=== PATIENT | male | born 1935 | race Caucasian/White ===

== ENCOUNTER → 2016-12-31 | Outpatient (CLI) | payer MEDICARE ==
[2016-05-04 22:13] VITALS: BP 131/75
[~2016-12-31] MED LIST: APIX5TAB3 PO; ASPI-630 PO; DILT240C2 PO; DILT240C77 PO; DIPH25CA58 PO; HYDR12.53 PO; IOHEXOL 300 MG/ML 75 ML VIAL. IV ONE; LOSA1TAB19 PO; METO25TA4 PO; Nicotine TD; OMEP20CA9 PO; POTA20TA4 PO; PRAV40TA2 PO; TRAZ-90 PO
--- NOTE | 2016-12-31 10:55 | RAD ---
CTA of the chest with and without contrast Clinical indications: Shortness of breath for 3 months with exertion. Increased d-dimer. Technique: Noncontrast axial localizer was performed. After IV infusion of 60 cc of Omnipaque 300, helical CT scanning of the chest was performed using the CT pulmonary embolism protocol. A coronal MIP reconstruction was generated. PQRS Compliance Statement: One or more of the following individualized dose reduction techniques were utilized for this examination: 1. Automated exposure control 2. Adjustment of the mA and/or kV according to patient size 3. Use of iterative reconstruction technique Comparison: None available. Findings: No pulmonary embolism is evident. No focal aneurysmal dilatation of the thoracic aorta is seen. Evaluation for intimal flap or dissection cannot be made since there is no contrast opacification of the thoracic aorta. Calcified atheromatous disease of the coronary arteries is seen. The heart size is mildly enlarged. No pericardial effusion is seen. No bulky thoracic lymphadenopathy is seen. Mediastinal lymph nodes are present and the largest lymph node measures 15 mm. Moderate size bilateral pleural effusions are seen. Bilateral groundglass lung infiltrates are seen consistent with pulmonary edema. No pneumothorax is seen. The proximal bronchial tree is patent. No adrenal masses are seen. Radiopaque gallstone is seen within the gallbladder. No osteolytic process is evident. IMPRESSION: No pulmonary embolism is evident. Cardiomegaly with calcified atheromatous disease of the coronary arteries. Moderate-sized bilateral pleural effusions and bilateral pulmonary edema. Mediastinal lymph nodes are seen which may be reactive in nature. Cholelithiasis.
== END | disposition home or self-care (01) ==
LOC: CT 09:07
PROVIDERS: ATTEND Nurse Practitioner Adult Health
DX: I51.7 Cardiomegaly (principal); J81.1 Chronic pulmonary edema; I25.10 Atherosclerotic heart disease of native coronary artery without angina pectoris; J90 Pleural effusion, not elsewhere classified; R91.8 Other nonspecific abnormal finding of lung field; K80.20 Calculus of gallbladder without cholecystitis without obstruction; R79.1 Abnormal coagulation profile; E78.00 Pure hypercholesterolemia, unspecified; I48.2 Chronic atrial fibrillation; I34.0 Nonrheumatic mitral (valve) insufficiency; I50.9 Heart failure, unspecified; K21.9 Gastro-esophageal reflux disease without esophagitis; J44.9 Chronic obstructive pulmonary disease, unspecified; F17.210 Nicotine dependence, cigarettes, uncomplicated
CPT/HCPCS: 71275; Q9967

== ENCOUNTER 2017-01-16 14:45 | Emergency (ER) | payer MEDICARE ==
[~2017-01-16] VITALS: Ht 180.3 cm; Wt 74.8 kg
[~2017-01-16 14:45] MED LIST changes: -IOHEXOL 300 MG/ML 75 ML VIAL. IV ONE
[2017-01-16] MEDS ORDERED: IPRATRPIUM/ALBUTEROL 0.5/2.5MG 3 ML NEBU. NEB ONE (15:15)
[2017-01-16 15:22] LABS: BASO # 0.1 x10^3/uL (0.0-0.2); BASO % 1 % (0-3); EOS # 0.1 x10^3/uL (0.0-0.7); EOS % 1 % (0-3); HEMATOCRIT 36.2 % (39.0-53.0); HEMOGLOBIN 12.3 g/dL (13.0-17.5); LYMPH # 0.7 x10^3/uL (1.0-4.8); LYMPH % 7 % (24-48); MEAN CORPUSCULAR HEMOGLOBIN 34 pg (25-35); MEAN CORPUSCULAR HGB CONC 34 g/dL (31-37); MEAN CORPUSCULAR VOLUME 99 fL (79-100); MONO # 1.1 x10^3/uL (0.0-1.1); MONO % 11 % (0-9); NEUT # 7.9 x10^3uL (1.8-7.7); NEUT % 81 % (31-73); PLATELET COUNT 191 x10^3/uL (140-400); RED BLOOD COUNT 3.67 x10^6/uL (4.30-5.70); RED CELL DISTRIBUTION WIDTH 16.5 % (11.5-14.5); WHITE BLOOD COUNT 9.7 x10^3/uL (4.0-11.0)
--- NOTE | 2017-01-16 15:29 | RAD ---
Single view of the Chest 01/16/2017 4:46 PM Indication: chest pain Comparison: Chest radiograph April 13, 2016 Findings: There is a mild right-sided medial basilar consolidation representing pneumonia or atelectasis. No pneumothorax is identified. Heart size is mildly enlarged but stable. No acute osseous abnormalities are identified. Impression: Mild right basilar consolidation which could represent atelectasis or pneumonia. Correlate with clinical findings and consider follow-up two-view chest radiograph to ensure resolution.
[2017-01-16 15:35] LABS: ALBUMIN 3.1 g/dL (3.4-5.0); CREATININE 1.8 mg/dL (0.7-1.3); DIRECT BILIRUBIN 0.4 mg/dL (0.0-0.2); GFR 36.6; POTASSIUM 3.5 mmol/L (3.5-5.1); TOTAL BILIRUBIN 1.2 mg/dL (0.2-1.0); TOTAL PROTEIN 7.2 g/dL (6.4-8.2)
--- NOTE | 2017-01-16 15:49 | EKG ---
[address] [address] Test Date: 2017-01-16 Test Time: 15:38:07 Pat Name: VIVEK ALEXANDER Department: Room: Gender: M Newspaper Copy Editor: ANKITA : 1935 Requested By: AFSHAN CUELLO Order Number: [id number] Reading MD: Measurements Intervals [place] Rate: 70 P: [place]: QRS: 74 QRSD: 90 T: 42 QT: 432 QTc: 470 Interpretive Statements ATRIAL FLUTTER R-S TRANSITION ZONE IN V LEADS DISPLACED TO THE LEFT QRS(T) CONTOUR ABNORMALITY CONSIDER ANTEROLATERAL MYOCARDIAL DAMAGE ABNORMAL ECG RI6.01 Unconfirmed report No previous ECG available for comparison
--- NOTE | 2017-01-16 15:56 | RAD ---
CT HEAD WITHOUT UMNYMXUX12/22/2017 5:11 PM Indication: pupil changes with increased unsteady gait on anticoags Comparison: CT head without contrast April 14, 2016 Procedure: Multidetector CT imaging of the head was performed without the administration of contrast. Findings: No evidence of acute intracranial hemorrhage is identified. No evidence of subacute territorial infarct is seen. Note that CT can be insensitive for acute ischemia. If there is continued clinical concern for acute ischemia MRI offers more sensitive evaluation. Senescent volume loss and periventricular deep white matter hypoattenuation is similar to prior studies. These changes the ventricles and basilar cisterns have an unremarkable and stable configuration. There is a new area of CSF density hypoattenuation in the periventricular deep white matter frontal lobe findings may reflect an interval lacunar, but chronic small infarct. No acute mass effect or midline shift is identified. No acute osseous changes are identified. Impression : 1. No evidence of acute intracranial abnormality 2. New small CSF density hypoattenuation in the right frontal lobe may reflect an interval, but chronic infarct. Correlate with clinical history 3. Stable senescent changes including changes of chronic small vessel disease PQRS Compliance Statement: One or more of the following individualized dose reduction techniques were utilized for this examination: 1. Automated exposure control 2. Adjustment of the mA and/or kV according to patient size 3. Use of iterative reconstruction technique
--- NOTE | 2017-01-16 15:57 | PHYS DOC ---
Past History Past Medical History: A-Fib, CHF, COPD, GERD, TIA Past Surgical History: Other Alcohol Use: None Drug Use: None Adult General Chief Complaint Chief Complaint: SHORTNESS OF BREATH HPI HPI This is a very pleasant 81-year-old male with history of TIA and COPD and CHF presenting to the emergency department with 2 chief complaints. Chief complaint #1 shortness of breath. He reports his shortness of breath has been going on for more than a week. It is improved with rest. It is worse when he lays back. He has a history of being on Lasix therapy however this was taken off. This was taken off 2 months ago. He denies unilateral leg swelling hemoptysis personal or family history of blood clotting disorders or recent hospitalization or immobilization. He did have a recent CT angiogram on 26 December which was negative for acute pulmonary embolism. He denies significant weight gain or leg swelling. Chief complaint #2 subacute increasing clumsiness associated with bilateral small pupils. The son who is with him today is a very good historian and explains that the patient has a history of TIAs and chronic ischemic encephalopathy is being followed by his other son who is a side splitter. Patient's symptomatology is been present for approximately 2-3 months worsening and declining. His son reports the patient in addition to his shortness of breath has been more and stay on his gait and then over the past week the patient's son has noticed that he has had smaller pupils that do not dilate in the darkness. Patient denies numbness weakness or tingling of his upper or lower extremities. He denies slurred speech vision changes. 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 Review of systems is negative for chest pain abdominal pain nausea vomiting diaphoresis fevers chills. He denies cough. He denies neck stiffness. He denies asymmetry of his facial expression. All other review of systems is negative unless otherwise noted in history of present illness. ED course: 81-year-old male presenting today with shortness of breath and increasing clumsiness with smaller pupils bilaterally. Upon arrival the patient was afebrile with a normal heart rate and blood pressure. Initial neurologic exam shows normal strength and sensation with normal deep tendon reflexes. He has a chronic lazy eye but otherwise his extraocular movements are intact. He does have 2-3 mm pupils that are mildly sluggish but reactive bilaterally. Otherwise no other neurologic deficits present. CT of the head x-ray of the chest and blood work along with EKG obtained. Chest x-ray shows right-sided effusion. Patient does not have clinical presentation suggestive of pneumonia. Could also represent atelectasis. Head CT shows chronic infarct which is consistent w/ the patient's clinical history as well. She is currently on aspirin and Eliquis for stroke prevention. I discussed the case with Dr. Cuenca patient's primary care physician and Dr. Johnson our neurologist. We' ll plan on outpatient MRI with follow-up with both PCP and neurologist. For the patient's elevated proBNP and worsening shortness of breath we will reinitiate the patient on 20 mg of oral Lasix which Dr. Cuenca is aware of and will follow the patient up. I did offer the patient admission to the hospital which the patient and his family declined. They respectfully desire to be treated as an outpatient. The patient was then discharged home in stable condition. They were to return if their symptoms worsened or if they were concerned for any reason. [id number] discharge instructions and return precautions were given. Patient's questions were answered to their satisfaction. Patient is comfortable plan. Review of Systems Review of Systems SEE ABOVE. Current Medications Current Medications Current Medications Medications (Trade) Dose Ordered Sig/Mehran Start Time Stop Time Status Last Admin Dose Admin Albuterol/ Ipratropium (Duoneb) 3 ml 1X ONCE 01/16/17 15:15 01/16/17 15:16 DC 01/16/17 15:05 3 ML Allergies Allergies Allergies Coded Allergies Type Severity Reaction Last Updated Verified No Known Drug Allergies 01/16/17 No Physical Exam Physical Exam SEE ABOVE Constitutional: Well developed, well nourished, no acute distress, non-toxic appearance. [] HENT: Normocephalic, atraumatic, bilateral external ears normal, oropharynx moist, no oral exudates, nose normal. [] Eyes: EOMI, conjunctiva normal, no discharge. [] Neck: Normal range of motion, no tenderness, supple, no stridor. [] Cardiovascular:Heart rate regular rhythm, no murmur [] Lungs & Thorax: [] Abdomen: Bowel sounds normal, soft, no tenderness, no masses, no pulsatile masses. [] Skin: Warm, dry, no erythema, no rash. [] Back: No tenderness, no CVA tenderness. [] Extremities: No tenderness, no cyanosis, no clubbing, ROM intact, no edema. [] Neurologic: Mental status: Awake oriented and alert x3 Cranial nerves: Extraocular movements intact, eyebrows elidia bilaterally smile symmetric, uvula elevation, shoulder shrug intact, tongue protrusion normal DTRs: 2+ Sensation: equal and normal in all extremities Strength: 5/5 in upper and lower extremities bilaterally. Normal muscle tone. Psychologic: Affect normal, judgement normal, mood normal. [] Current Patient Data Vital Signs Vital Signs Date Time Temp Pulse Resp B/P (MAP) Pulse Ox O2 Delivery O2 Flow Rate FiO2 01/16/17 14:56 97.4 84 32 97 Room Air Lab Results Laboratory Tests Test 01/16/17 15:05 White Blood Count 9.7 x10^3/uL (4.0-11.0) Red Blood Count 3.67 x10^6/uL (4.30-5.70) L Hemoglobin 12.3 g/dL (13.0-17.5) L Hematocrit 36.2 % (39.0-53.0) L Mean Corpuscular Volume 99 fL (79-100) Mean Corpuscular Hemoglobin 34 pg (25-35) Mean Corpuscular Hemoglobin Concent 34 g/dL (31-37) Red Cell Distribution Width 16.5 % (11.5-14.5) H Platelet Count 191 x10^3/uL (140-400) Neutrophils (%) (Auto) 81 % (31-73) H Lymphocytes (%) (Auto) 7 % (24-48) L Monocytes (%) (Auto) 11 % (0-9) H Eosinophils (%) (Auto) 1 % (0-3) Basophils (%) (Auto) 1 % (0-3) Neutrophils # (Auto) 7.9 x10^3uL (1.8-7.7) H Lymphocytes # (Auto) 0.7 x10^3/uL (1.0-4.8) L Monocytes # (Auto) 1.1 x10^3/uL (0.0-1.1) Eosinophils # (Auto) 0.1 x10^3/uL (0.0-0.7) Basophils # (Auto) 0.1 x10^3/uL (0.0-0.2) Sodium Level 136 mmol/L (136-145) Potassium Level 3.5 mmol/L (3.5-5.1) Chloride Level 97 mmol/L (98-107) L Carbon Dioxide Level 27 mmol/L (21-32) Anion Gap 12 (6-14) Blood Urea Nitrogen 37 mg/dL (8-26) H Creatinine 1.8 mg/dL (0.7-1.3) H Estimated GFR (Cockcroft-Gault) 36.6 Glucose Level 122 mg/dL (70-99) H Calcium Level 9.0 mg/dL (8.5-10.1) Total Bilirubin 1.2 mg/dL (0.2-1.0) H Direct Bilirubin 0.4 mg/dL (0.0-0.2) H Aspartate Amino Transferase (AST) 11 U/L (15-37) L Alanine Aminotransferase (ALT) 9 U/L (16-63) L Alkaline Phosphatase 79 U/L (46-116) Troponin I Quantitative < 0.017 ng/mL (0-0.055) Total Protein 7.2 g/dL (6.4-8.2) Albumin 3.1 g/dL (3.4-5.0) L Lipase 123 U/L (73-393) EKG EKG EKG obtained and reviewed by myself shows without identifiable P-wave. Rate is within normal limits. [place] is within normal limits. ST segments are congruent. Not suggestive of ACS. [] Radiology/Procedures Radiology/Procedures [] Course & Med Decision Making Course & Med Decision Making Pertinent Labs and Imaging studies reviewed. (See chart for details) [] Dragon Disclaimer Dragon Disclaimer This electronic medical record was generated, in whole or in part, using a voice recognition dictation system. Departure Departure: Impression: Primary Impression: Shortness of breath Additional Impression: Gait instability Disposition: 01 HOME, SELF-CARE Condition: STABLE Referrals: VENKAT DANIELSON MD (PCP) Patient Instructions: Heart Failure, Ischemic Stroke, Stroke Prevention Additional Instructions: Thank you for allowing us to participate in your care today. Followup with your primary care physician in 3 days if your symptoms do not improve. Call your Primary Doctor tomorrow and inform them of your visit today. If you do not have a primary care provider you can ask for a list of our primary care providers. Return to the emergency department you have any new or concerning findings. This should be evaluated by the primary care physician and any necessary consulting services for continued management within a few days after discharge. Return to emergency room if you have any new or concerning symptoms including but not limited to fever, chills, nausea, vomiting, intractable pain, any new rashes, chest pain, shortness of air, uncontrolled bleeding, difficulty breathing, and/or vision loss. Scripts Furosemide (FUROSEMIDE) 20 Mg Tablet 1 TAB PO DAILY, #7 TAB 0 Refills Prov: AFSHAN CUELLO MD 01/16/17 Problem Qualifiers AFSHAN CUELLO MD Jan 16, 2017 15:57
[2017-01-16] MEDS ORDERED: FUROSEMIDE 40 MG/4 ML VIAL IVP ONE (16:30)
[2017-01-16 16:47] VITALS: BP 132/62
[2017-01-16] MEDS ORDERED: FURO20TA3 PO (16:58)
[2017-01-16 17:08] LABS: BACTERIA,URINE 0 /HPF (0-FEW); BILIRUBIN,URINE NEG (NEG); CLARITY,URINE CLEAR; COLOR,URINE YELLOW; GLUCOSE,URINE NEG (NEG); NITRITE,URINE NEG (NEG); SQUAMOUS EPITHELIAL CELL,UR FEW /LPF; UROBILINOGEN,URINE 0.2 mg/dL (0.2 mg/dL)
[2017-01-16 17:09] LABS: HYALINE CASTS, URINE MOD /HPF
== END 2017-01-16 17:22 | disposition home or self-care (01) ==
LOC: ER 14:45
DX: R06.02 Shortness of breath (principal); R26.9 Unspecified abnormalities of gait and mobility; I48.91 Unspecified atrial fibrillation; I50.9 Heart failure, unspecified; J44.9 Chronic obstructive pulmonary disease, unspecified; K21.9 Gastro-esophageal reflux disease without esophagitis; Z86.73 Personal history of transient ischemic attack (TIA), and cerebral infarction without residual deficits
CPT/HCPCS: 36415; 70450; 71010; 80048; 80076; 81001; 83690; 83880; 84484; 85025; 93005; 94640; 96374; 99285; J1940; J7620

== ENCOUNTER → 2017-01-24 | Outpatient (CLI) | payer MEDICARE ==
[2017-01-16 16:47] VITALS: BP 132/62
[~2017-01-24] MED LIST changes: +FURO20TA3 PO
--- NOTE | 2017-01-24 11:33 | RAD ---
Right lower extremity venous ultrasound, 03/26/2016 : History: Right leg swelling Duplex evaluation including grayscale, color flow and spectral Doppler analysis was performed. The femoral and popliteal veins show no filling defects to suggest DVT. The visualized deep veins in the right calf are unremarkable. There is an elongated hypoechoic process present in the posteromedial aspect of the right calf. It measures 8-9 cm, approximately 1 cm in greatest AP dimension and 4 cm in greatest width. This probably represents complex fluid such as a hematoma. A bursal fluid collection or fluid from a ruptured Sawant's cyst are less likely possibilities. No cyst was identified in the popliteal fossa. There is mild overlying subcutaneous edema. There is mild overlying subcutaneous edema. IMPRESSION: 1. There is no sonographic evidence of deep vein thrombosis in the right lower extremity. 2. Elongated complex fluid collection in the right calf, most likely representing a hematoma.
== END | disposition home or self-care (01) ==
LOC: US 10:11
PROVIDERS: ATTEND Family Medicine
DX: I34.0 Nonrheumatic mitral (valve) insufficiency (principal); M79.89 Other specified soft tissue disorders; J44.9 Chronic obstructive pulmonary disease, unspecified; K21.9 Gastro-esophageal reflux disease without esophagitis
CPT/HCPCS: 93971

== ENCOUNTER 2017-02-28 16:51 | Emergency (ER) | payer MEDICARE ==
[2017-02-28 16:51] VITALS: BP 111/52
--- NOTE | 2017-02-28 17:35 | PHYS DOC ---
Past History Past Medical History: A-Fib, CHF, COPD, GERD, TIA Past Surgical History: Other Smoking: Non-smoker Alcohol Use: None Drug Use: None Adult General Chief Complaint Chief Complaint: SHORTNESS OF BREATH HPI HPI 81-year-old male brought in by his son with his caregiver because of increasing shortness of breath for the last few days. Patient has had history of CHF and left pleural effusion and had increase of dose of Lasix from 40 mg to 80 mg daily for the last couple months. Home health nurse reported that patient had increase of his pleural effusion and possible fluid around his heart because she was hearing some crepitation in his lungs sound and he had decreased left lung sound. Patient had increase of weakness without fever, cough, lower extremity edema, nausea vomiting, diarrhea and constipation. Review of Systems Review of Systems Review of symptoms as per history of present illness.[] All other systems were reviewed and found to be within normal limits, except as documented in this note. Allergies Allergies Allergies Coded Allergies Type Severity Reaction Last Updated Verified No Known Drug Allergies 01/16/17 No Physical Exam Physical Exam Constitutional: Mild distress, ill looking, non-toxic appearance. [] HENT: Normocephalic, atraumatic, bilateral external ears normal, oropharynx moist, no oral exudates, nose normal. [] Eyes: PERRLA, EOMI, conjunctiva normal, no discharge. [] Neck: Normal range of motion, no tenderness, supple, no stridor. [] Cardiovascular: Irregularly irregular, no murmur [] Lungs & Thorax: No respiratory distress, decrease of breath sounds bilaterally coarse rales present. Abdomen: Bowel sounds normal, soft, no tenderness, no masses, no pulsatile masses. [] Skin: Warm, dry, no erythema, no rash. [] Back: No tenderness, no CVA tenderness. [] Extremities: No tenderness, no cyanosis, no clubbing, ROM intact, no edema. [] Neurologic: Alert and oriented X 3, normal motor function, normal sensory function, no focal deficits noted. [] Psychologic: Affect normal, judgement normal, mood normal. [] Current Patient Data Vital Signs Vital Signs Date Time Temp Pulse Resp B/P (MAP) Pulse Ox O2 Delivery O2 Flow Rate FiO2 02/28/17 16:51 97.7 71 40 92 Room Air EKG EKG EKG interpreted by me. EKG at 1742 showed atrial fibrillation at rate of 68, poor R-wave progress in anterior leads[] Radiology/Procedures Radiology/Procedures [Chest x-ray: Pulmonary vascular congestion.] Course & Med Decision Making Course & Med Decision Making Pertinent Labs and Imaging studies reviewed. (See chart for details) Evaluation of patient in ER showed 81-year-old male patient brought in by his family because of increasing shortness of breath with history of CHF and pleural effusion with consideration of increasing of pleural effusion. Labs and x-rays pending. Patient's care transferred to Dr. Pat at 1800. [ Patient is acutely ill with decompensated congestive heart failure, intravascular volume depletion and a elevated serum lactate. I strongly and repeated recommended transfer to [facility], versus admission to this facility strongly Patient after careful consideration declines all medical treatment at this time. He state he wants to enjoy that time he has left away from the hospital. I discussed with the patient, the patient's family members in detail the ramifications of the patient's decision. Patient clearly demonstrates competency to make this decisions verbalizes understanding that he has high risk of dying and by declining further medical care at this time. He ins intructed to follow-up with his primary care physician to arrange for palliative care arrangements. I contacted the patient's primary care physician whose agreement to see the patient as an outpatient. Patient is instructed to return to the emergency department should he change his mind regarding further treatment and testing. I spent 30 minutes discussing the patient's condition and treatment options prior to him leaving the ED AMA. Milena Disclaimer Dragon Disclaimer This electronic medical record was generated, in whole or in part, using a voice recognition dictation system. Departure Departure: Impression: Primary Impression: Dyspnea Additional Impressions: Atrial fibrillation CHF (congestive heart failure) Acidosis Referrals: VENKAT DANIELSON MD (PCP) Problem Qualifiers PACO KO MD Feb 28, 2017 17:35 SUNIL PAT DO Mar 01, 2017 03:32
[2017-02-28 17:54] LABS: BASO # 0.1 x10^3/uL (0.0-0.2); BASO % 1 % (0-3); EOS # 0.1 x10^3/uL (0.0-0.7); EOS % 1 % (0-3); HEMATOCRIT 34.8 % (39.0-53.0); HEMOGLOBIN 11.5 g/dL (13.0-17.5); LYMPH # 0.7 x10^3/uL (1.0-4.8); LYMPH % 9 % (24-48); MEAN CORPUSCULAR HEMOGLOBIN 31 pg (25-35); MEAN CORPUSCULAR HGB CONC 33 g/dL (31-37); MEAN CORPUSCULAR VOLUME 94 fL (79-100); MONO # 0.7 x10^3/uL (0.0-1.1); MONO % 9 % (0-9); NEUT # 6.3 x10^3uL (1.8-7.7); NEUT % 80 % (31-73); PLATELET COUNT 306 x10^3/uL (140-400); RED CELL DISTRIBUTION WIDTH 17.1 % (11.5-14.5); WHITE BLOOD COUNT 7.9 x10^3/uL (4.0-11.0)
--- NOTE | 2017-02-28 18:14 | EKG ---
[address] [address] Test Date: 2017-02-28 Test Time: 17:43:22 Pat Name: VIVEK ALEXANDER Department: Room: Gender: M Skilled Laborer: ANKITA : 1935 Requested By: PACO KO Order Number: [id number] Reading MD: Measurements Intervals [place] Rate: 68 P: [place]: QRS: 79 QRSD: 92 T: 86 QT: 434 QTc: 462 Interpretive Statements IRREGULAR RHYTHM, NO P-WAVE FOUND ST & T ABNORMALITY, CONSIDER INFERIOR ISCHEMIA OR LEFT VENTRICULAR STRAIN ABNORMAL ECG RI6.01 Unconfirmed report No previous ECG available for comparison
[2017-02-28 18:16] LABS: ALBUMIN/GLOBULIN RATIO 0.8 (1.0-1.7); CALCIUM 9.5 mg/dL (8.5-10.1); CREATININE 2.1 mg/dL (0.7-1.3); GFR 30.6; POTASSIUM 4.2 mmol/L (3.5-5.1); TOTAL BILIRUBIN 0.6 mg/dL (0.2-1.0)
[2017-02-28 20:27] LABS: BACTERIA,URINE 0 /HPF (0-FEW); BILIRUBIN,URINE NEG (NEG); CLARITY,URINE CLEAR; COLOR,URINE YELLOW; GLUCOSE,URINE NEG (NEG); HYALINE CASTS, URINE MANY /HPF; NITRITE,URINE NEG (NEG); SQUAMOUS EPITHELIAL CELL,UR FEW /LPF; UROBILINOGEN,URINE 1 mg/dL (0.2 mg/dL)
--- NOTE | 2017-03-01 08:47 | RAD ---
INDICATION: shortness of breath COMPARISON: January 16, 2017 FINDINGS: 2 views of chest obtained. Cardiac silhouette is mildly prominent with calcific atherosclerosis. Mild coarsening of the lung markings bilaterally. Blunting of costophrenic angles posteriorly. Degenerative spurring of spine. IMPRESSION: Mild blunting of costophrenic angles posteriorly. Can be seen with small pleural effusions. Mild coarsening of the lung markings bilaterally. This could be secondary to chronic lung disease such as emphysema although would be difficult to exclude a superimposed process such as mild edema or interstitial infiltrate. 9 mm nodular density at right lower lung versus overlap of structures. Would consider obtaining a follow-up examination to ensure that this does not persist.
[2017-03-01] MEDS ORDERED: PANT40TA3 PO (15:00)
[2017-03-01] MEDS ORDERED: DILT360C36 PO (15:00)
[2017-03-01] MEDS ORDERED: IPRA3AMP NEB (15:00)
[2017-03-01] MEDS ORDERED: FURO80TA3 PO (15:00)
[2017-03-01] MEDS ORDERED: ALBU2.5V5 NEB (15:00)
[2017-03-01] MEDS ORDERED: TRAZ-90 PO (15:05)
[2017-03-01] MEDS ORDERED: HYDR12.58 PO (15:05)
[2017-03-01] MEDS ORDERED: CETI10TA16 PO (17:24)
[2017-03-01] MEDS ORDERED: METO25TA4 PO (17:24)
== END 2017-02-28 20:36 | disposition left against medical advice (07) ==
LOC: ER 16:51
DX: I48.91 Unspecified atrial fibrillation (principal); I50.9 Heart failure, unspecified; J44.9 Chronic obstructive pulmonary disease, unspecified; K21.9 Gastro-esophageal reflux disease without esophagitis; Z86.73 Personal history of transient ischemic attack (TIA), and cerebral infarction without residual deficits
CPT/HCPCS: 36415; 71046; 80053; 81001; 82553; 83605; 83880; 84484; 85025; 85379; 93005; 99285-25

== ENCOUNTER 2017-03-01 11:15 | Inpatient (IN) | payer MEDICARE ==
[~2017-03-01] VITALS: Ht 180.3 cm; Wt 72.7 kg
[2017-03-01 12:19] VITALS: BP 135/64
[2017-03-01] MEDS ORDERED: diphenhydrAMINE HCL 25 MG CAPSULE PO PRN (13:15)
[2017-03-01 13:42] LABS: BASO # 0.1 x10^3/uL (0.0-0.2); BASO % 1 % (0-3); EOS % 1 % (0-3); HEMATOCRIT 33.6 % (39.0-53.0); HEMOGLOBIN 11.2 g/dL (13.0-17.5); LYMPH # 0.5 x10^3/uL (1.0-4.8); LYMPH % 8 % (24-48); MEAN CORPUSCULAR HEMOGLOBIN 31 pg (25-35); MEAN CORPUSCULAR HGB CONC 33 g/dL (31-37); MEAN CORPUSCULAR VOLUME 93 fL (79-100); MONO # 0.6 x10^3/uL (0.0-1.1); MONO % 10 % (0-9); NEUT # 4.5 x10^3uL (1.8-7.7); NEUT % 80 % (31-73); PLATELET COUNT 252 x10^3/uL (140-400); RED BLOOD COUNT 3.61 x10^6/uL (4.30-5.70); RED CELL DISTRIBUTION WIDTH 16.9 % (11.5-14.5); WHITE BLOOD COUNT 5.6 x10^3/uL (4.0-11.0)
[2017-03-01 14:05] LABS: ALBUMIN 2.8 g/dL (3.4-5.0); ALBUMIN/GLOBULIN RATIO 0.7 (1.0-1.7); CALCIUM 9.1 mg/dL (8.5-10.1); CREATININE 1.8 mg/dL (0.7-1.3); GFR 36.6; POTASSIUM 3.6 mmol/L (3.5-5.1); TOTAL BILIRUBIN 0.5 mg/dL (0.2-1.0); TOTAL PROTEIN 6.7 g/dL (6.4-8.2)
--- NOTE | 2017-03-01 14:06 | RAD ---
INDICATION: soa COMPARISON: February 28, 2017 FINDINGS: 2 views of chest obtained. Calcific atherosclerosis. Coarsened lung markings are seen bilaterally with mild interstitial prominence. The previously identified possible nodular density in the right lower lung is not well seen on this exam but there is a possible nodular density at the left lower lung versus overlap. There is some blunting of the costophrenic angles posteriorly. Degenerative changes spine IMPRESSION: Coarsened lung markings bilaterally with mild interstitial prominence. Although a large portion of this is likely secondary to the patient's known chronic lung disease, superimposed mild edema is possible given this finding. Blunting of the costophrenic angles posteriorly. Could be secondary to small pleural effusions or pleural thickening.
[2017-03-01] MEDS ORDERED: IPRA3AMP NEB (15:00)
[2017-03-01] MEDS ORDERED: PANT40TA3 PO (15:00)
[2017-03-01] MEDS ORDERED: FURO80TA3 PO (15:00)
[2017-03-01] MEDS ORDERED: DILT360C36 PO (15:00)
[2017-03-01] MEDS ORDERED: ALBU2.5V5 NEB (15:00)
[2017-03-01] MEDS ORDERED: ALBUTEROL SULFATE 2.5 MG/3 ML NEBU. NEB PRN (15:00)
[2017-03-01] MEDS ORDERED: HYDR12.58 PO (15:05)
[2017-03-01] MEDS ORDERED: TRAZ-90 PO (15:05)
[2017-03-01] MEDS ORDERED: METO25TA4 PO (17:24)
[2017-03-01] MEDS ORDERED: CETI10TA16 PO (17:24)
--- NOTE | 2017-03-01 17:39 | EKG ---
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
--- NOTE | 2017-03-01 17:50 | CARD ---
MR#: [id number] Date of Study: 03/01/2017 Ordering Physician: VENKAT DANIELSON, Referring Physician: VENKAT DANIELSON, Migdalia: Virginia Barnettclay APPROVED REPORT EXAM: Two-dimensional and M-mode echocardiogram with Doppler and color Doppler. Other Information Quality : Technically Difficult INDICATION Dyspnea Congestive Heart Failure 2D DIMENSIONS Left Atrium(2D)5.0 (1.6-4.0cm)IVSd1.0 (0.7-1.1cm) Aortic Root(2D)3.9 (2.0-3.7cm)LVDd6.5 (3.9-5.9cm) LVOT Diameter1.9 (1.8-2.4cm)IVSs0.9 (0.8-1.2cm) LVDs4.6 (2.5-4.0cm)FS (%) 29.3 % SV118.7 mlLVEF(%)55.1 (>50%) Aortic Valve AoV Peak Jaison.145.1cm/Clau Peak GR.8.5mmHg LVOT Peak Jaison.104.3cm/sAVA (VMAX)2.12cm2 Mitral Valve MV E Peak Gr.14mmHgMV E Mean Gr.6mmHg Tricuspid Valve TR P. Xhcaogrr427ic/sRAP [id number] TR Peak Gr.79syPgPUZN75seGr LEFT VENTRICLE The Left Ventricle is moderately dilated. There is normal left ventricular wall thickness. The left v entricular systolic function is normal. The Ejection Fraction is 60-65%. There is normal LV segmental wall motion. RIGHT VENTRICLE The right ventricle is normal size. The right ventricular systolic function is normal. ATRIA The left atrium is moderately dilated. The right atrium is moderately dilated. AORTIC VALVE The aortic valve is tri-cuspid. The aortic valve is mildly to moderately sclerotic. Doppler and Color Flow revealed mild aortic regurgitation. There is no significant aortic valvular stenosis. MITRAL VALVE The anterior leaflet is severly calcified. Mitral annular calcification is moderate. Possible flailed anteriormitral valve leaflet. A moderate mitral valve prolapse is present. The mitral regurgitant je t is eccentrically directed. Doppler and Color-flow revealed severe mitral regurgitation. TRICUSPID VALVE The tricuspid valve is normal in structure and function. Doppler and Color Flow revealed mild tricusp id regurgitation. PULMONIC VALVE The pulmonary valve is normal in structure and function. Doppler and Color Flow revealed no pulmonic valvular regurgitation. GREAT VESSELS The aortic root is mildly dilated. The ascending aorta is normal in size. The IVC is normal in size a nd collapses >50% with inspiration. PERICARDIAL EFFUSION There is no pleural effusion. There is no evidence of significant pericardial effusion. Critical Notification Critical Value: Yes <Conclusion> The left ventricular systolic function is normal. The Ejection Fraction is 60-65%. There is normal LV segmental wall motion. Anterior mitral valve leaflet appears to be flailed. Probable severe mitral regurgitation with eccentric posteriorily directed jet. Mild tricuspid regurgitation. There is no evidence of significant pericardial effusion. * Recommend KYLER for further evaluation of mitral valve Signed by : Jerad Liz, Electronically Approved : 03/01/2017 17:49:58
[2017-03-01 19:51] VITALS: BP 145/70
[2017-03-01] MEDS: CETIRIZINE HCL 10 MG TABLET PO SCH (20:07)
[2017-03-01] MEDS: traZODone 100 MG TABLET. PO SCH (20:07)
[2017-03-01] MEDS: PRAVASTATIN 20 MG TABLET. PO SCH (20:08)
[2017-03-01] MEDS: METOPROLOL TART IMMED RELEASE 25 MG TABLET PO SCH (20:08)
[2017-03-01] MEDS: APIXABAN 5 MG TABLET. PO SCH (20:08)
[2017-03-01] MEDS ORDERED: traZODone 100 MG TABLET. PO SCH (21:00)
[2017-03-01] MEDS ORDERED: METOPROLOL TART IMMED RELEASE 25 MG TABLET PO SCH (21:00)
[2017-03-01] MEDS: IPRATRPIUM/ALBUTEROL 0.5/2.5MG 3 ML NEBU. NEB SCH (21:46)
[2017-03-01 23:34] VITALS: BP 108/70
[2017-03-02 05:31] VITALS: BP 107/77
[2017-03-02] MEDS: IPRATRPIUM/ALBUTEROL 0.5/2.5MG 3 ML NEBU. NEB SCH ×3 (06:00→22:08)
[2017-03-02 08:08] LABS: BASO % 1 % (0-3); EOS # 0.2 x10^3/uL (0.0-0.7); EOS % 3 % (0-3); HEMOGLOBIN 10.6 g/dL (13.0-17.5); LYMPH # 0.5 x10^3/uL (1.0-4.8); LYMPH % 9 % (24-48); MEAN CORPUSCULAR HEMOGLOBIN 31 pg (25-35); MEAN CORPUSCULAR HGB CONC 33 g/dL (31-37); MEAN CORPUSCULAR VOLUME 94 fL (79-100); MONO # 0.6 x10^3/uL (0.0-1.1); MONO % 11 % (0-9); NEUT # 4.4 x10^3uL (1.8-7.7); NEUT % 76 % (31-73); PLATELET COUNT 241 x10^3/uL (140-400); RED BLOOD COUNT 3.42 x10^6/uL (4.30-5.70); RED CELL DISTRIBUTION WIDTH 16.9 % (11.5-14.5); WHITE BLOOD COUNT 5.7 x10^3/uL (4.0-11.0)
[2017-03-02 08:21] LABS: CALCIUM 9.1 mg/dL (8.5-10.1); CREATININE 1.6 mg/dL (0.7-1.3); GFR 41.9; POTASSIUM 3.6 mmol/L (3.5-5.1)
[2017-03-02] MEDS ORDERED: PANTOPRAZOLE 40 MG TABLET. PO SCH (09:00)
[2017-03-02] MEDS ORDERED: hydroCHLOROthiazide 12.5 MG CAPSULE PO SCH (09:00)
[2017-03-02] MEDS ORDERED: NICOTINE 21MG PATCH. TD SCH (09:00)
[2017-03-02] MEDS ORDERED: FUROSEMIDE 20 MG TABLET PO SCH (09:00)
[2017-03-02] MEDS: PANTOPRAZOLE 40 MG TABLET. PO SCH (09:19)
[2017-03-02] MEDS: methylPREDNISolone SOD SUCC PF 40 MG/ML VIAL. IV SCH ×2 (09:19→20:59)
[2017-03-02] MEDS: FUROSEMIDE 80 MG TABLET PO SCH (09:19)
[2017-03-02] MEDS: METOPROLOL TART IMMED RELEASE 25 MG TABLET PO SCH ×2 (09:20→21:00)
[2017-03-02] MEDS: DOXYCYCLINE HYCLATE 100 MG TABLET PO SCH ×2 (09:20→20:57)
[2017-03-02] MEDS: APIXABAN 5 MG TABLET. PO SCH ×2 (09:20→20:59)
[2017-03-02] MEDS: ASPIRIN 81 MG TAB.CHEW PO SCH (09:20)
[2017-03-02] MEDS: POTASSIUM CHLORIDE 20 MEQ TABLET.ER. PO SCH (09:21)
[2017-03-02] MEDS: NICOTINE 7MG PATCH. TD SCH (09:30)
[2017-03-02 10:42] VITALS: BP 153/77
[2017-03-02 10:48] VITALS: BP 100/66
[2017-03-02 14:59] VITALS: BP 97/61
[2017-03-02 19:28] VITALS: BP 103/61
[2017-03-02] MEDS ORDERED: QUEtiapine 50 MG TABLET. PO PRN (20:45)
[2017-03-02] MEDS: LACTOBACILLUS RHAMNOSUS GG 1 CAPSULE. PO SCH (20:58)
[2017-03-02] MEDS: CETIRIZINE HCL 10 MG TABLET PO SCH (20:58)
[2017-03-02] MEDS: traZODone 100 MG TABLET. PO SCH (20:59)
[2017-03-02] MEDS: PRAVASTATIN 20 MG TABLET. PO SCH (20:59)
[2017-03-02 23:22] VITALS: BP 109/61
--- NOTE | 2017-03-03 04:32 | PN ---
DATE: SUBJECTIVE: The patient admitted with acute exacerbation of COPD, doing much better. He is on IV steroids and for bronchitis, given some antibiotic doxycycline. Otherwise, the patient is resting fairly comfortably, making fairly good progress overall. PHYSICAL EXAMINATION: GENERAL: The patient is alert and oriented. VITAL SIGNS: Blood pressure 110/70, respiratory rate 16, pulse 60 and afebrile. LUNGS: The patient's lungs were diminished throughout, some mild rhonchi at the bases. CARDIOVASCULAR: Regular sinus rhythm. A 2/6 systolic ejection murmur. ABDOMEN: Soft . EXTREMITIES: No clubbing, cyanosis or edema. NEUROLOGIC: Intact. PLAN: The patient will be admitted. The patient will continue on IV Solu-Medrol, aggressive pulmonary toilet, diuresis and make further evaluation on him as indicated. VENKAT DANIELSON MD DR: MARLENE/ivy JOB#: [id number] / [id number]
[2017-03-03 05:42] VITALS: BP 93/52
[2017-03-03] MEDS: IPRATRPIUM/ALBUTEROL 0.5/2.5MG 3 ML NEBU. NEB SCH (05:54)
[2017-03-03] MEDS: APIXABAN 5 MG TABLET. PO SCH (07:46)
[2017-03-03] MEDS: methylPREDNISolone SOD SUCC PF 40 MG/ML VIAL. IV SCH (07:46)
[2017-03-03] MEDS: PANTOPRAZOLE 40 MG TABLET. PO SCH (07:46)
[2017-03-03] MEDS: DOXYCYCLINE HYCLATE 100 MG TABLET PO SCH (07:47)
[2017-03-03] MEDS: POTASSIUM CHLORIDE 20 MEQ TABLET.ER. PO SCH (07:47)
[2017-03-03] MEDS: ASPIRIN 81 MG TAB.CHEW PO SCH (07:47)
[2017-03-03] MEDS: LACTOBACILLUS RHAMNOSUS GG 1 CAPSULE. PO SCH (07:47)
[2017-03-03] MEDS: NICOTINE 7MG PATCH. TD SCH (07:48)
[2017-03-03] MEDS: FUROSEMIDE 80 MG TABLET PO SCH (07:49)
[2017-03-03] MEDS: METOPROLOL TART IMMED RELEASE 25 MG TABLET PO SCH (07:49)
[2017-03-03 07:50] VITALS: BP 126/77
[2017-03-03] MEDS ORDERED: DOXY100C2 PO ×2 (08:07→08:10)
--- NOTE | 2017-03-13 21:12 | DS ---
DATE OF DISCHARGE: 03/03/2017 HOSPITAL COURSE: A 81-year-old male admitted for acute exacerbation of chronic obstructive pulmonary disease, difficulty in breathing. The patient made good progress. He was given IV steroids. He also was probably having some bronchitis even though, the chest x-ray itself did not show anything in particular except for mild interstitial prominence, possible pleural effusion, but in any case, the patient made excellent progress during the rest of his hospitalization. There were no complications. Albumin was low at 2.8, and in any case, the patient made good progress during the rest of his hospitalization. He was started on antibiotics and steroids. He made good progress and he was discharged home for followup as an outpatient. IMPRESSION: Acute exacerbation of chronic obstructive pulmonary disease, moderate protein malnutrition. The patient made excellent progress, demanded to be discharged and was discharged home on a heart healthy diet, decreased activity, and followup accordingly as an outpatient. VENKAT DANIELSON MD DR: MARLENE/ivy JOB#: [id number] / [id number]
== END 2017-03-03 08:45 | disposition home or self-care (01) | DRG 191 ==
LOC: 1 SOUTH 12:00
PROVIDERS: ADMIT Family Medicine; ATTEND Family Medicine
DX: J44.1 Chronic obstructive pulmonary disease with (acute) exacerbation (principal); E44.0 Moderate protein-calorie malnutrition; J80 Acute respiratory distress syndrome; F17.210 Nicotine dependence, cigarettes, uncomplicated; I10 Essential (primary) hypertension; Z82.3 Family history of stroke; Z80.9 Family history of malignant neoplasm, unspecified; Z86.73 Personal history of transient ischemic attack (TIA), and cerebral infarction without residual deficits; Z98.890 Other specified postprocedural states; Z87.19 Personal history of other diseases of the digestive system
CPT/HCPCS: 36415; 71046; 80048; 80053; 81001; 82550; 82553; 83605; 83880; 84443; 84484; 85025; 85379; 93005; 93306; 94640; J2920; J7620

== ENCOUNTER → 2017-03-08 | Outpatient (CLI) | payer MEDICARE ==
[2017-03-03 07:50] VITALS: BP 126/77
[~2017-03-08] MED LIST changes: +ALBU2.5V5 NEB; +CETI10TA16 PO; +DILT360C36 PO; +DOXY100C2 PO; +FURO80TA3 PO; +HYDR12.58 PO; +IPRA3AMP NEB; +PANT40TA3 PO
[2017-03-08 14:25] LABS: BASO % 0 % (0-3); EOS % 0 % (0-3); HEMATOCRIT 29.6 % (39.0-53.0); HEMOGLOBIN 9.5 g/dL (13.0-17.5); LYMPH # 0.7 x10^3/uL (1.0-4.8); LYMPH % 9 % (24-48); MEAN CORPUSCULAR HEMOGLOBIN 31 pg (25-35); MEAN CORPUSCULAR HGB CONC 32 g/dL (31-37); MEAN CORPUSCULAR VOLUME 96 fL (79-100); MONO # 0.9 x10^3/uL (0.0-1.1); MONO % 11 % (0-9); NEUT # 6.8 x10^3uL (1.8-7.7); NEUT % 81 % (31-73); PLATELET COUNT 251 x10^3/uL (140-400); RED BLOOD COUNT 3.09 x10^6/uL (4.30-5.70); RED CELL DISTRIBUTION WIDTH 17.7 % (11.5-14.5); WHITE BLOOD COUNT 8.4 x10^3/uL (4.0-11.0)
[2017-03-08 14:32] LABS: ALBUMIN 3.1 g/dL (3.4-5.0); ALBUMIN/GLOBULIN RATIO 0.9 (1.0-1.7); CALCIUM 9.2 mg/dL (8.5-10.1); CREATININE 2.4 mg/dL (0.7-1.3); GFR 26.2; POTASSIUM 4.3 mmol/L (3.5-5.1); TOTAL BILIRUBIN 0.6 mg/dL (0.2-1.0); TOTAL PROTEIN 6.4 g/dL (6.4-8.2)
== END | disposition home or self-care (01) ==
LOC: LAB 13:07
PROVIDERS: ATTEND Internal Medicine Cardiovascular Disease
DX: I34.1 Nonrheumatic mitral (valve) prolapse (principal); I10 Essential (primary) hypertension; Z87.891 Personal history of nicotine dependence
CPT/HCPCS: 36415; 80053; 85025

== ENCOUNTER 2017-03-25 15:51 | Emergency (ER) | payer MEDICARE ==
[~2017-03-25] VITALS: Ht 180.3 cm; Wt 68.5 kg
--- NOTE | 2017-03-25 17:06 | RAD ---
Clinical indications: Patient fell today. Head injury. Neck pain.. NONCONTRAST HEAD CT Technique: Noncontrast axial cross sectional scanning of the head was performed. PQRS Compliance Statement: One or more of the following individualized dose reduction techniques were utilized for this examination: 1. Automated exposure control 2. Adjustment of the mA and/or kV according to patient size 3. Use of iterative reconstruction technique Comparison: January 16, 2017. Findings: No acute intracranial hemorrhage or midline shift or mass-effect or hydrocephalus or extra-axial fluid collection is seen. Moderate bilateral periventricular white matter hypodensity is seen consistent with chronic small vessel ischemic disease in this age group. No new sulci effacement is seen. No skull fracture or pneumocephalus is seen. No opacification of the mastoid sinuses or the paranasal sinuses is seen. There may be a mucous retention cyst of the inferior aspect of the left maxillary sinus. The maxillary sinuses are not completely seen in this study. Impression: No new intracranial abnormality is seen. Chronic small vessel ischemic disease of the periventricular white matter. CERVICAL SPINE CT WITHOUT CONTRAST Technique: Noncontrast helical CT scanning of the cervical spine was performed. Multiplanar 2-D reconstructions were generated. PQRS Compliance Statement: One or more of the following individualized dose reduction techniques were utilized for this examination: 1. Automated exposure control 2. Adjustment of the mA and/or kV according to patient size 3. Use of iterative reconstruction technique Findings: Patient motion artifact is seen which does degrade many of the images. No obvious fracture is seen. The odontoid process and C1 and C2 lateral masses and the C1 vertebrae are intact. No discitis or osteolytic process or prevertebral soft tissue swelling is evident. There is a grade 1 anterolisthesis of C4-5. There is degenerative disc space narrowing and endplate spurring from C4-5 down through C6-7. No perching of facet joints is evident. IMPRESSION: No acute fracture. Degenerative cervical spondylosis. Bilateral pleural effusions are seen right greater than left. There is a right upper lobe lung infiltrate or pulmonary edema present.
[2017-03-25] MEDS ORDERED: TETANUS AND DIPHTHERIA TOX/PF 0.5 ML VIAL. VAX IM ONE (17:15)
--- NOTE | 2017-03-25 17:16 | PHYS DOC ---
Past History Past Medical History: A-Fib, CHF, COPD, GERD, TIA Past Surgical History: Other Smoking: Non-smoker Alcohol Use: None Drug Use: None Adult General Chief Complaint Chief Complaint: LACERATION/AVULSION HPI HPI 81-year-old male patient with multiple medical problems including atrial fibrillation on Xarelto was discharged from [facility] to fdc this morning and tenderness after her [id number] left he had unwitnessed fall with laceration of his scalp. Patient is alert and oriented 1 and does not remember the fall. Family member states he is acting like his usual. Patient denies any pain. Last tetanus shot is unknown. Review of Systems Review of Systems Unable to obtain because of dementia Current Medications Current Medications Current Medications Medications (Trade) Dose Ordered Sig/Mehran Start Time Stop Time Status Last Admin Dose Admin Tetanus/ Diphtheria Toxoids Adsorbed (Tenivac Vial) 0.5 ml ONCE ONCE 03/25/17 17:15 03/25/17 17:16 Allergies Allergies Allergies Coded Allergies Type Severity Reaction Last Updated Verified No Known Drug Allergies 01/16/17 No Physical Exam Physical Exam Constitutional: No acute distress, non-toxic appearance. [] HENT: Normocephalic, bilateral external ears normal, oropharynx moist, no oral exudates, nose normal, 4 cm superficial laceration in left parietal area without active bleeding Eyes: PERRLA, EOMI, conjunctiva normal, no discharge. [] Neck: Normal range of motion, no tenderness, supple, no stridor. [] Cardiovascular:Heart rate irregular rhythm, no murmur [] Lungs & Thorax: Bilateral breath sounds clear to auscultation [] Abdomen: Bowel sounds normal, soft, no tenderness, no masses, no pulsatile masses. [] Skin: Warm, dry, no erythema, no rash. [] Back: No tenderness, no CVA tenderness. [] Extremities: No tenderness, no cyanosis, no clubbing, ROM intact, no edema. [] Neurologic: Alert and oriented X 1, normal motor function, normal sensory function, no focal deficits noted. [] Current Patient Data Vital Signs Vital Signs Date Time Temp Pulse Resp B/P (MAP) Pulse Ox O2 Delivery O2 Flow Rate FiO2 03/25/17 16:09 97.6 91 24 92 Room Air EKG EKG [] Radiology/Procedures Radiology/Procedures [] [address] [place] [id number] IMAGING REPORT Signed PATIENT: VIVEK ALEXANDER ACCOUNT: [id number] : 1935 LOCATION: ER AGE: 81 SEX: M EXAM STATUS: REG ER ORD. PHYSICIAN: PACO KO MD REASON: fall PROCEDURE: CT HEAD AND CERVICAL SPINE WO Clinical indications: Patient fell today. Head injury. Neck pain.. NONCONTRAST HEAD CT Technique: Noncontrast axial cross sectional scanning of the head was performed. PQRS Compliance Statement: One or more of the following individualized dose reduction techniques were utilized for this examination: 1. Automated exposure control 2. Adjustment of the mA and/or kV according to patient size 3. Use of iterative reconstruction technique Comparison: January 16, 2017. Findings: No acute intracranial hemorrhage or midline shift or mass-effect or hydrocephalus or extra-axial fluid collection is seen. Moderate bilateral periventricular white matter hypodensity is seen consistent with chronic small vessel ischemic disease in this age group. No new sulci effacement is seen. No skull fracture or pneumocephalus is seen. No opacification of the mastoid sinuses or the paranasal sinuses is seen. There may be a mucous retention cyst of the inferior aspect of the left maxillary sinus. The maxillary sinuses are not completely seen in this study. Impression: No new intracranial abnormality is seen. Chronic small vessel ischemic disease of the periventricular white matter. CERVICAL SPINE CT WITHOUT CONTRAST Technique: Noncontrast helical CT scanning of the cervical spine was performed. Multiplanar 2-D reconstructions were generated. PQRS Compliance Statement: One or more of the following individualized dose reduction techniques were utilized for this examination: 1. Automated exposure control 2. Adjustment of the mA and/or kV according to patient size 3. Use of iterative reconstruction technique Findings: Patient motion artifact is seen which does degrade many of the images. No obvious fracture is seen. The odontoid process and C1 and C2 lateral masses and the C1 vertebrae are intact. No discitis or osteolytic process or prevertebral soft tissue swelling is evident. There is a grade 1 anterolisthesis of C4-5. There is degenerative disc space narrowing and endplate spurring from C4-5 down through C6-7. No perching of facet joints is evident. IMPRESSION: No acute fracture. Degenerative cervical spondylosis. Bilateral pleural effusions are seen right greater than left. There is a right upper lobe lung infiltrate or pulmonary edema present. DICTATED AND SIGNED BY: SPENSER MARTINEZ MD DATE: 03/25/171651 CC: VENKAT DANIELSON MD; PACO KO MD ~ Course & Med Decision Making Course & Med Decision Making Pertinent Labs and Imaging studies reviewed. (See chart for details) [] Dragon Disclaimer Dragon Disclaimer This electronic medical record was generated, in whole or in part, using a voice recognition dictation system. Departure Departure: Impression: Primary Impression: Scalp laceration Additional Impressions: Fall at fdc Dementia Atrial fibrillation Disposition: HOME, SELF-CARE (fdc at 1755) Condition: IMPROVED Referrals: VENKAT DANIELSON MD (PCP) Patient Instructions: Fall Prevention in Hospitals, Soft Tissue Injury of the Neck, [id number] Additional Instructions: Follow-up with your primary care physician in 2 or 3 days Laceration Repair Lac Repair Indication: [Scalp laceration] Procedure: 4 cm parietal scalp laceration was repaired with Dermabond and Steri- Strip Total repaired wound length: [4 cm Other Items: [OTHER ITEMS] The patient tolerated the procedure [well Complications: [none Problem Qualifiers PACO KO MD Mar 25, 2017 17:15
[2017-03-25 17:52] VITALS: BP 116/76
== END 2017-03-25 18:05 | disposition home or self-care (01) ==
LOC: ER 15:51
DX: S01.01XA Laceration without foreign body of scalp, initial encounter (principal); F03.90 Unspecified dementia, unspecified severity, without behavioral disturbance, psychotic disturbance, mood disturbance, and anxiety; I48.91 Unspecified atrial fibrillation; I50.9 Heart failure, unspecified; J44.9 Chronic obstructive pulmonary disease, unspecified; K21.9 Gastro-esophageal reflux disease without esophagitis; Z86.73 Personal history of transient ischemic attack (TIA), and cerebral infarction without residual deficits; Z79.01 Long term (current) use of anticoagulants; W19.XXXA Unspecified fall, initial encounter; Y93.89 Activity, other specified; Y99.8 Other external cause status; Y92.129 Unspecified place in nursing home as the place of occurrence of the external cause
CPT/HCPCS: 12002; 70450; 72125; 90471; 90714; 99284-25

== ENCOUNTER 2017-03-28 14:50 | Inpatient (IN) | payer MEDICARE ==
[2017-03-28] VITALS (9 sets, daily range): BP systolic 92–116; BP diastolic 53–68
[~2017-03-28] VITALS: Ht 180.3 cm; Wt 63.2 kg
[2017-03-28] MEDS ORDERED: IV NORMAL SALINE 1,000ML 1,000 ML IV ONE ×2 (15:00→21:15)
--- NOTE | 2017-03-28 15:07 | ED.ADGEN ---
Past History Past Medical History: A-Fib, CHF, COPD, GERD, TIA Past Surgical History: Other Smoking: Non-smoker Alcohol Use: None Drug Use: None Adult General Chief Complaint Chief Complaint general decline, low blood pressure HPI HPI Patient is a 81 year old male who presents with generalized decline since yesterday. Pt [facility] via [facility], reportedly hypoxic in 80s and initial SBP in 80s. Pt given 500ml LR bolus. Acucheck 170s, pt is normally a&o and is alert to self at this time. He's c/o back pain in upper back. He was seen on Saturday, 3 days ago, for a fall and had laceration of the scalp, pt is on Eliquis (or Xarelto, records unclear) for h/o afib. Pt has dark /black stools but is reportedly on iron supplements. Pt denies cough. Review of Systems Review of Systems History is limited due to pt's dementia. He only c/o back pain at this time. Current Medications Current Medications Current Medications Medications (Trade) Dose Ordered Sig/Mehran Start Time Stop Time Status Last Admin Dose Admin Levofloxacin/ Dextrose 150 ml @ 150 mls/hr Q48H 03/28/17 16:00 Levofloxacin/ Dextrose (Levaquin Per Pharmacy) 1 each PRN DAILY PRN 03/28/17 16:15 03/28/17 19:28 1 EACH Pantoprazole Sodium (Protonix Vial) 80 mg 1X ONCE 03/28/17 16:00 03/28/17 16:01 DC 03/28/17 16:00 80 MG Pantoprazole Sodium 40 mg/ Sodium Chloride 100 ml @ 10 mls/hr 1X ONCE 03/28/17 16:15 03/29/17 01:58 DC Sodium Chloride 1,000 ml @ 1,000 mls/hr 1X ONCE 03/28/17 15:00 03/28/17 16:00 DC 03/28/17 15:00 1,000 MLS/HR Vancomycin HCl (Vanco Per Pharmacy) 1 each PRN DAILY PRN 03/28/17 16:15 03/28/17 19:32 1 EACH Allergies Allergies Allergies Coded Allergies Type Severity Reaction Last Updated Verified No Known Drug Allergies 01/16/17 No Physical Exam Physical Exam Constitutional: Well developed, well nourished, mild acute respiratory distress , elderly, answers questions HENT: Normocephalic, hematoma of left proximal scalp with overlying steristrips , bilateral external ears normal, oropharynx moist, no oral exudates, nose normal. [] Eyes: PERRLA, EOMI, conjunctiva normal, no discharge. [] Neck: Normal range of motion, no stepoffs or tenderness, supple, no stridor. [] Cardiovascular:Heart rate regular with irregular rhythm, no murmur [] Lungs & Thorax: Bilateral breath sounds, RLL crackles, moderate air movement, no wheeze Abdomen: Bowel sounds normal, soft, no tenderness, no masses, no pulsatile masses. [] Skin: Warm, dry, no erythema, no rash. [] Back: mid and proximal t-spine ttp without obvious stepoffs/external signs of trauma. no CVA tenderness. [] Extremities: No tenderness, no cyanosis, no clubbing, ROM intact, no edema. [] Neurologic: Alert and oriented X self, moves all extremities Current Patient Data Vital Signs Vital Signs Date Time Temp Pulse Resp B/P (MAP) Pulse Ox O2 Delivery O2 Flow Rate FiO2 03/28/17 16:17 Nasal Cannula 6.0 03/28/17 15:55 81 26 102/58 (73) 95 03/28/17 14:50 97.9 Lab Results Laboratory Tests Test 03/28/17 14:56 03/28/17 15:25 03/28/17 16:00 Blood pH 7.46 (7.35-7.46) Blood Gas PCO2 30 mmHg (35-46) L Blood Gas PO2 183 mmHg (71-100) H Blood Gas HCO3 21 mmol/L (21-28) Arterial Bld O2 Saturation (Calc) 100 % (92-99) H FiO2 100 % White Blood Count 5.8 x10^3/uL (4.0-11.0) Red Blood Count 2.43 x10^6/uL (4.30-5.70) L Hemoglobin 7.0 g/dL (13.0-17.5) *L Hematocrit 22.8 % (39.0-53.0) L Mean Corpuscular Volume 94 fL (79-100) Mean Corpuscular Hemoglobin 29 pg (25-35) Mean Corpuscular Hemoglobin Concent 31 g/dL (31-37) Red Cell Distribution Width 19.5 % (11.5-14.5) H Platelet Count 149 x10^3/uL (140-400) Neutrophils (%) (Auto) 80 % (31-73) H Lymphocytes (%) (Auto) 8 % (24-48) L Monocytes (%) (Auto) 8 % (0-9) Eosinophils (%) (Auto) 2 % (0-3) Basophils (%) (Auto) 1 % (0-3) Neutrophils # (Auto) 4.6 x10^3uL (1.8-7.7) Lymphocytes # (Auto) 0.5 x10^3/uL (1.0-4.8) L Monocytes # (Auto) 0.5 x10^3/uL (0.0-1.1) Eosinophils # (Auto) 0.1 x10^3/uL (0.0-0.7) Basophils # (Auto) 0.1 x10^3/uL (0.0-0.2) Prothrombin Time 14.1 SEC (9.4-11.4) H Prothrombin Time INR 1.4 (0.9-1.1) H PTT 32 SEC (23-33) Sodium Level 144 mmol/L (136-145) Potassium Level 4.5 mmol/L (3.5-5.1) Chloride Level 111 mmol/L (98-107) H Carbon Dioxide Level 23 mmol/L (21-32) Anion Gap 10 (6-14) Blood Urea Nitrogen 27 mg/dL (8-26) H Creatinine 1.9 mg/dL (0.7-1.3) H Estimated GFR (Cockcroft-Gault) 34.4 BUN/Creatinine Ratio 14 (6-20) Glucose Level 108 mg/dL (70-99) H Lactic Acid Level 3.2 mmol/L (0.4-2.0) H Calcium Level 8.8 mg/dL (8.5-10.1) Total Bilirubin 0.7 mg/dL (0.2-1.0) Aspartate Amino Transferase (AST) 14 U/L (15-37) L Alanine Aminotransferase (ALT) 17 U/L (16-63) Alkaline Phosphatase 66 U/L (46-116) Troponin I Quantitative < 0.017 ng/mL (0-0.055) QD-Mno-O-Type Natriuretic Peptide 8128 pg/mL (0-449) H Total Protein 5.1 g/dL (6.4-8.2) L Albumin 1.9 g/dL (3.4-5.0) L Albumin/Globulin Ratio 0.6 (1.0-1.7) L Urine Collection Type Unknown Urine Color Yellow Urine Clarity Clear Urine pH 5.0 Urine Specific [place] 1.015 Urine Protein 30 mg/dl (NEG-TRACE) Urine Glucose (UA) Neg mg/dL (NEG) Urine Ketones (Stick) Neg mg/dL (NEG) Urine Blood Small (NEG) Urine Nitrite Neg (NEG) Urine Bilirubin Neg (NEG) Urine Urobilinogen Dipstick 0.2 mg/dL (0.2 mg/dL) Urine Leukocyte Esterase Neg (NEG) Urine RBC 3-5 /HPF (0-2) Urine WBC 5-10 /HPF (0-4) Urine Squamous Epithelial Cells Few /LPF Urine Bacteria 0 /HPF (0-FEW) Urine Hyaline Casts Mod /HPF Urine Mucus Mod /LPF Stool Occult Blood Negative (NEG) Influenza Type A (Rapid) Negative (NEGATIVE) Influenza Type B (Rapid) Negative (NEGATIVE) EKG EKG 78 bpm, afib, QTC 474, no ST elevation or depression, nonischemic T wavess, normal axis, interpreted by me.[] Radiology/Procedures Radiology/Procedures CXR: Portable chest, 03/28/2017: History: Hypoxia Comparison is made to a study from 03/01/2017. The heart is within normal limits in size. There is calcific plaquing of the aorta. Mild to moderate patchy bilateral pulmonary infiltrates have developed with poor definition of the underlying pulmonary vascularity. No pleural fluid is evident. The bony structures are demineralized. IMPRESSION: New patchy bilateral pulmonary infiltrates suggesting pneumonia versus pulmonary edema. CT head: Impression: No evidence of acute intracranial abnormality or acute change from prior exam. CT T-spine: IMPRESSION: 1. Mild superior endplate deformity at T3 of indeterminate age. 2. Mild scattered degenerative changes in the thoracic spine. 3. Moderate bilateral pulmonary infiltrates most likely represent pulmonary edema, with moderate sized associated bilateral pleural effusions. Pneumonia is less likely. Course & Med Decision Making Course & Med Decision Making Pertinent Labs and Imaging studies reviewed. (See chart for details) IVs established, 1 L NS bolus ordered with labs/lactate/blood cultures/hemocult/ rapid flu. CT head and t spine ordered, CXR. UA. Total of 1500ml fluid bolus was given via EMS and ED Patient has worsening anemia and thought to possibly have a GI bleed as he has black stools and has decreased to 2.5 units since the middle of last month. 1unit PRBCs ordered. IV lasix 20mg, protonix oblus and drip ordered. Hemocult pending CXR shows pnemonia vs pulm edema. Lactate elevated, with hypoxia and hypotension, treated for pneumonia with antibiotics. Pt received 20 IV [address]ix. Discuss[address] with Dr. Roper, accepted to ICU, recommended cardiology consult. discussed with Dr. Reyes, pt's bp now dropped into upp 80s. recommended levophed and additional 20mg lasix ordered. Central line placed, ordered levophed thru pharmacy. Daughter arrived and states he's been having a lot of really bad nosebleeds, which could have contributed to anemia. Fecal occult negative. Pt transferred to ICU in critical condition but stable at this time. Total critical care time excluding procedures: 90 minutes Final Impression Final Impression Acute respiratory failure Sepsis - possible MRSA pneumonia - possible lactic acidosis Acute anemia Acute systolic heart failure - possible[] Problems: Dragon Disclaimer Dragon Disclaimer This electronic medical record was generated, in whole or in part, using a voice recognition dictation system. Central Line Placement Proc Central Line Indication: intermittent hypotension Consent: emergent Procedure: The patient was positioned appropriately and the skin over the left femoral was chlorhexadine. Local anesthesia was 1% lidocaine. A large bore needle was used to identify the vein. A guide wire was then inserted into the vein through the needle. was then inserted into the vessel over the guide wire using the Seldinger technique. All ports showed good, free flowing blood return and were flushed with saline solution. The catheter was then securely fastened to the skin sutures and covered with a sterile dressing. The patient tolerated the procedure well. Complications: none JOSE RAFAEL NIETO MD Mar 28, 2017 15:07
[2017-03-28 15:10] LABS: BGAS PH 7.46 (7.35-7.46)
[2017-03-28 15:44] LABS: BASO # 0.1 x10^3/uL (0.0-0.2); BASO % 1 % (0-3); EOS # 0.1 x10^3/uL (0.0-0.7); EOS % 2 % (0-3); HEMATOCRIT 22.8 % (39.0-53.0); LYMPH # 0.5 x10^3/uL (1.0-4.8); LYMPH % 8 % (24-48); MEAN CORPUSCULAR HEMOGLOBIN 29 pg (25-35); MEAN CORPUSCULAR HGB CONC 31 g/dL (31-37); MEAN CORPUSCULAR VOLUME 94 fL (79-100); MONO # 0.5 x10^3/uL (0.0-1.1); MONO % 8 % (0-9); NEUT # 4.6 x10^3uL (1.8-7.7); NEUT % 80 % (31-73); PLATELET COUNT 149 x10^3/uL (140-400); RED BLOOD COUNT 2.43 x10^6/uL (4.30-5.70); RED CELL DISTRIBUTION WIDTH 19.5 % (11.5-14.5); WHITE BLOOD COUNT 5.8 x10^3/uL (4.0-11.0)
--- NOTE | 2017-03-28 15:58 | RAD ---
Portable chest, 03/28/2017: History: Hypoxia Comparison is made to a study from 03/01/2017. The heart is within normal limits in size. There is calcific plaquing of the aorta. Mild to moderate patchy bilateral pulmonary infiltrates have developed with poor definition of the underlying pulmonary vascularity. No pleural fluid is evident. The bony structures are demineralized. IMPRESSION: New patchy bilateral pulmonary infiltrates suggesting pneumonia versus pulmonary edema.
[2017-03-28] MEDS ORDERED: PANTOPRAZOLE IV 40 MG VIAL. IVP ONE (16:00)
[2017-03-28 16:01] LABS: ALBUMIN 1.9 g/dL (3.4-5.0); ALBUMIN/GLOBULIN RATIO 0.6 (1.0-1.7); CALCIUM 8.8 mg/dL (8.5-10.1); CREATININE 1.9 mg/dL (0.7-1.3); GFR 34.4; POTASSIUM 4.5 mmol/L (3.5-5.1); TOTAL BILIRUBIN 0.7 mg/dL (0.2-1.0); TOTAL PROTEIN 5.1 g/dL (6.4-8.2)
--- NOTE | 2017-03-28 16:04 | RAD ---
CT HEAD WITHOUT CONTRAST03/28/2017 4:56 PM Indication: recent fall, decline, blood thinners Comparison: CT head without contrast March 25, 2017 Procedure: Multidetector CT imaging of the head was performed without the administration of contrast. Findings: No evidence of acute intracranial hemorrhage is identified. No interval territorial infarct is seen. Global atrophic changes are similar to prior study. Extensive periventricular and deep white matter hypoattenuation is also similar to prior exam. 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 The ventricles and basilar cisterns are stable in configuration. No abnormal extra-axial fluid collections are identified. No acute osseous changes are seen. Impression: No evidence of acute intracranial abnormality or acute change from prior exam. PQRS Compliance Statement: One or more of the following individualized dose reduction techniques were utilized for this examination: 1. Automated exposure control 2. Adjustment of the mA and/or kV according to patient size 3. Use of iterative reconstruction technique
[2017-03-28] MEDS ORDERED: PANTOPRAZOLE IV 40 MG in IV NORMAL SALINE 100ML 100 ML IV ONE (16:15)
--- NOTE | 2017-03-28 16:18 | RAD ---
CT of the thoracic spine without contrast, 03/28/2017: History: Fall, pain Noncontrast scans were obtained with multiplanar reconstructions produced. There is a mild superior endplate deformity at T3, of indeterminate age. The other thoracic vertebral heights are well-maintained. There are mild scattered marginal spurs. There are mild degenerative changes involving scattered facet joints bilaterally. The central spinal canal is well-preserved. There are moderate sized bilateral pleural effusions. There are moderate bilateral interstitial and groundglass opacities in both lungs. Pulmonary edema is most likely. There are scattered underlying pulmonary lucencies probably due to emphysema. There is extensive calcific plaquing of the thoracic aorta. IMPRESSION: 1. Mild superior endplate deformity at T3 of indeterminate age. 2. Mild scattered degenerative changes in the thoracic spine. 3. Moderate bilateral pulmonary infiltrates most likely represent pulmonary edema, with moderate sized associated bilateral pleural effusions. Pneumonia is less likely. PQRS Compliance Statement: One or more of the following individualized dose reduction techniques were utilized for this examination: 1. Automated exposure control 2. Adjustment of the mA and/or kV according to patient size 3. Use of iterative reconstruction technique
[2017-03-28] MEDS ORDERED: IPRATRPIUM/ALBUTEROL 0.5/2.5MG 3 ML NEBU. NEB ONE (16:30)
[2017-03-28] MEDS ORDERED: ONDANSETRON PF 4 MG/2 ML VIAL. IV PRN (16:30)
[2017-03-28 16:37] LABS: INFLUENZA A PATIENT NEGATIVE (NEGATIVE); INFLUENZA B PATIENT NEGATIVE (NEGATIVE)
[2017-03-28 16:43] LABS: CLARITY,URINE CLEAR; COLOR,URINE YELLOW; GLUCOSE,URINE NEG (NEG)
[2017-03-28 16:44] LABS: BACTERIA,URINE 0 /HPF (0-FEW); BILIRUBIN,URINE NEG (NEG); HYALINE CASTS, URINE MOD /HPF; NITRITE,URINE NEG (NEG); SQUAMOUS EPITHELIAL CELL,UR FEW /LPF; UROBILINOGEN,URINE 0.2 mg/dL (0.2 mg/dL)
[2017-03-28] MEDS ORDERED: FUROSEMIDE 40 MG/4 ML VIAL IVP ONE (16:45)
[2017-03-28 16:58] LABS: FECAL OB PT NEGATIVE (NEG)
[2017-03-28] MEDS ORDERED: NOREPINEPHRINE BITARTRATE 16 MG in IV NORMAL SALINE 250ML 250 ML IV PRN (17:45)
[2017-03-28] MEDS ORDERED: VANCOMYCIN 1 GM VIAL. ONE (17:59)
[2017-03-28] MEDS ORDERED: IV NORMAL SALINE 500ML 500 ML ONE (17:59)
[2017-03-28] MEDS ORDERED: VANCOMYCIN 1.5 GM in IV NORMAL SALINE 500ML 500 ML IV ONE (18:00)
[2017-03-28] MEDS ORDERED: FUROSEMIDE 20 MG/2 ML VIAL IVP ONE (18:00)
[2017-03-28] MEDS: VANCOMYCIN 1 GM in IV NORMAL SALINE 250ML 250 ML IV SCH (18:00)
[2017-03-28] MEDS ORDERED: ALBUTEROL SULFATE 2.5 MG/3 ML NEBU. NEB PRN (18:30)
[2017-03-28] MEDS: VANCOMYCIN PER PHARMACY MC PRN (19:32)
[2017-03-28] MEDS ORDERED: POLY17PO5 PO (20:27)
[2017-03-28] MEDS ORDERED: SENN1TAB21 PO (20:37)
[2017-03-28] MEDS ORDERED: FOLI1TAB16 PO (20:37)
[2017-03-28] MEDS ORDERED: THIA100T22 PO (20:37)
[2017-03-28] MEDS ORDERED: FERR-26 PO (20:37)
[2017-03-28] MEDS ORDERED: ACET325T9 PO (20:37)
[2017-03-28] MEDS ORDERED: ACETAMINOPHEN 325 MG TABLET PO PRN (20:45)
[2017-03-28] MEDS ORDERED: CETI10TA16 PO (20:57)
[2017-03-28] MEDS ORDERED: IPRATRPIUM/ALBUTEROL 0.5/2.5MG 3 ML NEBU. NEB SCH (21:00)
[2017-03-28] MEDS ORDERED: NON FORMULARY ITEM (Doxycycline Hyclate 1 CAP) PO SCH (21:00)
[2017-03-28] MEDS: IPRATRPIUM/ALBUTEROL 0.5/2.5MG 3 ML NEBU. NEB SCH (21:44)
[2017-03-28] MEDS ORDERED: CEFEPIME HCL 2 GM in IV NORMAL SALINE 100ML 100 ML IV SCH (22:00)
[2017-03-28] MEDS: CEFEPIME HCL IV Push 2 GM VIAL. IVP SCH (22:21)
[2017-03-28] MEDS: LACTOBACILLUS RHAMNOSUS GG 1 CAPSULE. PO SCH (22:21)
[2017-03-28] MEDS: PRAVASTATIN 20 MG TABLET. PO SCH (22:21)
[2017-03-28] MEDS: traZODone 100 MG TABLET. PO SCH (22:21)
[2017-03-28] MEDS: CETIRIZINE HCL 10 MG TABLET PO SCH (22:22)
[2017-03-28] MEDS: METOPROLOL TART IMMED RELEASE 25 MG TABLET PO SCH (22:22)
[2017-03-28] MEDS: APIXABAN 5 MG TABLET. PO SCH (22:22)
[2017-03-29] VITALS (19 sets, daily range): BP systolic 85–132; BP diastolic 53–70
--- NOTE | 2017-03-29 00:55 | EKG ---
[address] [address] Test Date: 2017-03-28 Test Time: 14:57:09 Pat Name: VIVEK ALEXANDER Department: Room: ICU02 1 Gender: M Pulverizer: : [id number] Requested By: JOSE RAFAEL NIETO Order Number: [id number] Reading MD: Ron Soares MD Measurements Intervals [place] Rate: 78 P: MD: QRS: 82 QRSD: 80 T: 68 QT: 412 QTc: 474 Interpretive Statements PROBABLE ATRIAL FIBRILLATION NON-SPECIFIC ST/T CHANGES Electronically Signed On 04-04-2017 12:29:00 YACHT HAND by Ron Soares MD
[2017-03-29] MEDS: LORazepam 2 MG/ML VIAL IV PRN ×2 (01:01→20:18)
[2017-03-29] MEDS: IPRATRPIUM/ALBUTEROL 0.5/2.5MG 3 ML NEBU. NEB SCH ×4 (05:42→20:28)
[2017-03-29 06:15] LABS: BASO % 1 % (0-3); EOS % 1 % (0-3); HEMATOCRIT 24.4 % (39.0-53.0); HEMOGLOBIN 7.7 g/dL (13.0-17.5); LYMPH # 0.3 x10^3/uL (1.0-4.8); LYMPH % 4 % (24-48); MEAN CORPUSCULAR HEMOGLOBIN 28 pg (25-35); MEAN CORPUSCULAR HGB CONC 32 g/dL (31-37); MEAN CORPUSCULAR VOLUME 90 fL (79-100); MONO # 0.7 x10^3/uL (0.0-1.1); MONO % 8 % (0-9); NEUT % 87 % (31-73); PLATELET COUNT 137 x10^3/uL (140-400); RED BLOOD COUNT 2.72 x10^6/uL (4.30-5.70); WHITE BLOOD COUNT 8.1 x10^3/uL (4.0-11.0)
[2017-03-29 06:17] LABS: CALCIUM 8.8 mg/dL (8.5-10.1); GFR 32.4; POTASSIUM 3.8 mmol/L (3.5-5.1)
[2017-03-29] MEDS: FERROUS SULFATE 325 MG TABLET. PO SCH ×2 (08:00→17:00)
[2017-03-29] MEDS: CEFEPIME HCL IV Push 2 GM VIAL. IVP SCH ×2 (08:39→20:18)
[2017-03-29] MEDS: POTASSIUM CHLORIDE 20 MEQ TABLET.ER. PO SCH (09:00)
[2017-03-29] MEDS ORDERED: DILTIAZEM HCL 360 MG PO SCH (09:00)
[2017-03-29] MEDS: METOPROLOL TART IMMED RELEASE 25 MG TABLET PO SCH ×2 (09:00→20:19)
[2017-03-29] MEDS: FOLIC ACID 1 MG TABLET PO SCH (09:00)
[2017-03-29] MEDS: FUROSEMIDE 40 MG TABLET PO SCH (09:00)
[2017-03-29] MEDS ORDERED: FUROSEMIDE 80 MG TABLET PO SCH (09:00)
[2017-03-29] MEDS: LACTOBACILLUS RHAMNOSUS GG 1 CAPSULE. PO SCH ×2 (09:00→20:19)
[2017-03-29] MEDS: SENNOSIDES/DOCUSATE 8.6/50MG TABLET. PO SCH (09:00)
[2017-03-29] MEDS: POLYETHYLENE GLYCOL 3350 17 GM PACKET. PO SCH (09:00)
[2017-03-29] MEDS: THIAMINE 100 MG TABLET. PO SCH (09:00)
[2017-03-29] MEDS: ASPIRIN 81 MG TAB.CHEW PO SCH (09:00)
--- NOTE | 2017-03-29 09:49 | RAD ---
Portable chest, 03/29/2017: History: Pneumonia, CHF Comparison is made to yesterday's study. The heart is within normal limits in size. There are patchy bilateral pulmonary infiltrates. These appear to have improved slightly with better definition of the upper lobe pulmonary vessels. No new pulmonary abnormality is seen. No significant pleural fluid is evident. IMPRESSION: Slight interval improvement in the pulmonary infiltrates, probably representing pulmonary edema. A component of pneumonia cannot be excluded.
[2017-03-29] MEDS: MORPHINE SULFATE 2 MG/ML DISP.SYRIN. IV PRN ×2 (10:24→20:55)
[2017-03-29] MEDS: APIXABAN 5 MG TABLET. PO SCH ×2 (10:24→20:19)
[2017-03-29] MEDS: PANTOPRAZOLE 40 MG TABLET. PO SCH (10:25)
--- NOTE | 2017-03-29 13:25 | PDOC2 ---
CONSULT Date of Admission DATE: 03/29/17 TIME: 13:13 Reason for Consult: Hypotension and atrial fibrillation Referring Physician: Tal Roper MD Chief Complaint Altered mental status and low blood pressure. Problem List Problems Medical Problems: (1) Hypotension Status: Acute History of Present Illness He is a 81-year-old male who has been residing in a local fci. When I saw the patient in the intensive care unit, he was falling asleep when I asked him questions. He was not able to give me any history. I obtained the history from the computerized medical record and the nurse. From what I can gather, the patient was found to have altered mental status and low blood pressure at the fci. Because of this, he was sent to the emergency room for further evaluation. He was felt to be in shock. A central line was placed via the femoral vein. He received fluid resuscitation and his blood pressure improved. He was also found to have severe anemia and received 1 unit of packed red blood cells. Because of atrial fibrillation and low blood pressures , a cardiology consultation was requested. The nurse tells me that she brought him breakfast this morning and he was not able to eat because he was falling asleep. She did not give him his oral medications because of his altered mental status. Cardiovascular: AFIB, CHF, HTN, valve insufficiency Heme/Onc: Anemia NOS Family History Unknown due to patient's altered mental status. Social History Currently residing in a fci. Current Medications Current Medications Sodium Chloride 1,000 ml @ 1,000 mls/hr 1X ONCE IV Last administered on at 15:00; Start 03/28/17 at 15:00; Stop 03/28/17 at 16:00; Status DC Pantoprazole Sodium 40 mg/ Sodium Chloride 100 ml @ 10 mls/hr 1X ONCE IV ; Start 03/28/17 at 16:15; Stop 03/29/17 at 01:58; Status DC Pantoprazole Sodium (Protonix Vial) 80 mg 1X ONCE IVP Last administered on 03/28at 16:00; Start 03/28/17 at 16:00; Stop 03/28/17 at 16:01; Status DC Albuterol/ Ipratropium (Duoneb) 3 ml 1X ONCE NEB Last administered on at 16:15; Start 03/28/17 at 16:30; Stop 03/28/17 at 16:31; Status DC Vancomycin HCl (Vanco Per Pharmacy) 1 each PRN DAILY PRN MC SEE COMMENTS Last administered on 03/28/17at 19:32; Start 03/28/17 at 16:15 Levofloxacin/ Dextrose (Levaquin Per Pharmacy) 1 each PRN DAILY PRN MC SEE COMMENTS Last administered on 03/28/17at 19:28; Start 03/28/17 at 16:15 Cefepime HCl 2 gm/ Sodium Chloride 100 ml @ 200 mls/hr Q8HRS IV ; Start at 22:00; Status UNV Levofloxacin/ Dextrose 150 ml @ As Directed STK-MED ONCE IV ; Start 03/28/17 at 16:17; Stop 03/28/17 at 16:18; Status DC Furosemide (Lasix) 20 mg 1X ONCE IVP Last administered on 03/28/17at 16:36; Start 03/28/17 at 16:45; Stop 03/28/17 at 16:46; Status DC Ondansetron HCl (Zofran) 4 mg PRN Q4HRS PRN IV NAUSEA/VOMITING; Start 03/28/17 at 16:30; Stop 03/29/17 at 16:29 Levofloxacin/ Dextrose 150 ml @ 150 mls/hr Q48H IV ; Start 03/28/17 at 16:00 Cefepime HCl (Maxipime) 2 gm Q12HR IVP Last administered on 03/29/17at 08:39; Start 03/28/17 at 21:00 Vancomycin HCl 1.5 gm/Sodium Chloride 500 ml @ 250 mls/hr 1X ONCE IV Last administered on 03/28/17at 18:00; Start 03/28/17 at 18:00; Stop 03/28/17 at 19:59; Status DC Vancomycin HCl 1 gm/Sodium Chloride 250 ml @ 250 mls/hr Q24H IV Last administered on 03/28/17at 18:00; Start 03/29/17 at 18:00 Vancomycin HCl 1 each 1X ONCE MC ; Start 03/30/17 at 17:30; Stop 03/30/17 at 17: 31 Lactobacillus Rhamnosus (Culturelle) 1 cap BID PO Last administered on at 22:21; Start 03/28/17 at 21:00 Norepinephrine Bitartrate 16 mg/ Sodium Chloride 266 ml @ 0.99 mls/hr CONT PRN IV SEE I/O RECORD; Start 03/28/17 at 17:45 Furosemide (Lasix) 20 mg 1X ONCE IVP Last administered on 03/28/17at 22:01; Start 03/28/17 at 18:00; Stop 03/28/17 at 18:01; Status DC Sodium Chloride 500 ml @ As Directed STK-MED ONCE .ROUTE ; Start 03/28/17 at 17: 59; Stop 03/28/17 at 18:00; Status DC Vancomycin HCl 1 gm STK-MED ONCE .ROUTE ; Start 03/28/17 at 17:59; Stop 03/28/17 at 18:00; Status DC Albuterol Sulfate (Ventolin) 2.5 mg PRN Q4HRS PRN NEB SHORTNESS OF BREATH; Start 03/28/17 at 18:30 Apixaban (Eliquis) 5 mg BID PO Last administered on 03/29/17at 10:24; Start at 21:00 Aspirin (Children'S Aspirin) 81 mg DAILY PO ; Start 03/29/17 at 09:00 Cetirizine HCl (ZyrTEC) 10 mg HS PO Last administered on 03/28/17at 22:22; Start 03/28/17 at 21:00 Furosemide (Lasix) 80 mg DAILY PO ; Start 03/29/17 at 09:00; Stop 03/29/17 at 09: 00; Status DC Albuterol/ Ipratropium (Duoneb) 3 ml TID NEB ; Start 03/28/17 at 21:00; Stop 03/28 at 21:00; Status DC Metoprolol Tartrate (Lopressor) 25 mg BID PO ; Start 03/28/17 at 21:00 Pantoprazole Sodium (Protonix) 40 mg DAILY PO Last administered on 03/29/17at 10: 25; Start 03/29/17 at 09:00 Potassium Chloride (Klor-Con) 20 meq DAILY PO ; Start 03/29/17 at 09:00 Trazodone HCl (Desyrel) 100 mg QHS PO Last administered on 03/28/17at 22:21; Start 03/28/17 at 21:00 Non-Formulary Medication 360 mg DAILY PO ; Start 03/29/17 at 09:00; Stop 03/29/17 at 09:00; Status DC Non-Formulary Medication 1 cap BID PO ; Start 03/28/17 at 21:00; Stop 03/28/17 at 21:00; Status DC Pravastatin Sodium (Pravachol) 40 mg QHS PO Last administered on 03/28/17at 22:21 ; Start 03/28/17 at 21:00 Albuterol/ Ipratropium (Duoneb) 3 ml RTQID NEB Last administered on 03/29/17at 09 :18; Start 03/28/17 at 21:15 Acetaminophen (Tylenol) 650 mg PRN Q4HRS PRN PO PAIN / TEMP; Start 03/28/17 at 20:45 Ferrous Sulfate (Feosol) 325 mg BIDWMEALS PO ; Start 03/29/17 at 08:00 Folic Acid (Folic Acid) 1 mg DAILY PO ; Start 03/29/17 at 09:00 Polyethylene Glycol (miraLAX) 17 gm DAILY PO ; Start 03/29/17 at 09:00 Senna/Docusate Sodium (Senna Plus) 1 tab DAILY PO ; Start 03/29/17 at 09:00 Thiamine HCl (Vitamin B-1) 100 mg DAILY PO ; Start 03/29/17 at 09:00 Furosemide (Lasix) 40 mg DAILY PO ; Start 03/29/17 at 09:00 Diltiazem HCl (Cardizem 24hr Cd) 180 mg DAILY PO Last administered on 03/29/17at 10:25; Start 03/29/17 at 09:00 Sodium Chloride 1,000 ml @ 50 mls/hr 1X ONCE IV Last administered on at 19:00; Start 03/28/17 at 21:15; Stop 03/29/17 at 17:14 Lorazepam (Ativan) 0.5 mg PRN Q8HRS PRN IV ANXIETY / AGITATION Last administered on 03/29/17at 01:01; Start 03/28/17 at 22:00 Morphine Sulfate (Morphine 2mg Syringe) 2 mg PRN Q2HR PRN IV PAIN Last administered on 03/29/17at 10:24; Start 03/29/17 at 10:15 Active Scripts Active Reported Cetirizine Hcl 10 Mg Tablet 1 Tab PO HS LAST DOSE GIVEN: DATE: TIME: NEXT DOSE DUE: DATE: TIME: Tylenol (Acetaminophen) 325 Mg Tablet 650 Mg PO PRN Q4HRS PRN Ferrous Sulfate 325 Mg Tablet 1 Tab PO BID Vitamin B-1 (Thiamine Mononitrate) 100 Mg Tablet 100 Mg PO DAILY Folic Acid 1 Mg Tablet 1 Tab PO DAILY Senna Plus Tablet (Sennosides/Docusate Sodium) 1 Each Tablet 1 Each PO DAILY Miralax (Polyethylene Glycol 3350) 17 Gm Powd.pack 17 Gm PO DAILY Metoprolol Tartrate 25 Mg Tablet 1 Tab PO BID LAST DOSE GIVEN: DATE: TIME: NEXT DOSE DUE: DATE: TIME: Trazodone Hcl 100 Mg Tablet 1 Tab PO QHS LAST DOSE GIVEN: DATE: TIME: NEXT DOSE DUE: DATE: TIME: Furosemide 80 Mg Tablet 0.5 Tab PO DAILY LAST DOSE GIVEN: DATE: TIME: NEXT DOSE DUE: DATE: TIME: Duoneb 0.5-3(2.5) Mg/3 Ml (Albuterol/Ipratropium) 3 Ml Ampul.neb 3 Ml NEB TID LAST DOSE GIVEN: DATE: TIME: NEXT DOSE DUE: DATE: TIME: Protonix (Pantoprazole Sodium) 40 Mg Tablet.dr 1 Tab PO DAILY LAST DOSE GIVEN: DATE: TIME: NEXT DOSE DUE: DATE: TIME: Tiazac (Diltiazem Hcl) 360 Mg Capsule.er 0.5 Tab PO DAILY LAST DOSE GIVEN: DATE: TIME: NEXT DOSE DUE: DATE: TIME: Albuterol Sulfate Neb Soln (Albuterol Sulfate) 2.5 Mg/3 Ml Vial.neb 1 Vial NEB PRN Q4HRS LAST DOSE GIVEN: DATE: TIME: NEXT DOSE DUE: DATE: TIME: Aspirin 81 Mg Tab.chew 81 Mg PO DAILY LAST DOSE GIVEN: DATE: TIME: NEXT DOSE DUE: DATE: TIME: Eliquis (Apixaban) 5 Mg Tablet 5 Mg PO BID LAST DOSE GIVEN: DATE: TIME: NEXT DOSE DUE: DATE: TIME: Klor-Con M20 (Potassium Chloride) 20 Meq Tab.er.prt 20 Meq PO DAILY LAST DOSE GIVEN: DATE: TIME: NEXT DOSE DUE: DATE: TIME: Pravastatin Sodium 40 Mg Tablet 40 Mg PO QHS LAST DOSE GIVEN: DATE: TIME: NEXT DOSE DUE: DATE: TIME: Allergies: Coded Allergies: No Known Drug Allergies (Unverified , 01/16/17) Review of System Not obtainable due to altered mental status. General: No acute distress, Other (Extremely somnolent. Not oriented to place or time.) HEENT: EOMI, Mucous membr. moist/pink, Other ( He has Steri-Strips on his posterior scalp.) Lungs: Clear to auscultation, Normal air movement Heart: Normal S1, Normal S2, Other ( Tachycardia with irregular rate and rhythm with a 2/6 holosystolic murmur.) Abdomen: Normal bowel sounds, Soft, No tenderness Extremities: No clubbing, No cyanosis, No edema, Normal pulses Neuro: Cranial nerves 3-12 NL, Other ( Extremely somnolent and disoriented.) Psych/Mental Status: Other ( Extremely somnolent and disoriented.) VITALS Vital Signs Date Time Temp Pulse Resp B/P (MAP) Pulse Ox O2 Delivery O2 Flow Rate FiO2 03/29/17 12:38 Nasal Cannula 2.0 03/29/17 12:23 107 8 95/55 (68) 99 03/29/17 11:18 97.9 Labs Laboratory Tests Test 03/28/17 14:56 03/28/17 15:25 03/28/17 16:00 03/28/17 19:30 Blood Gas pH 7.46 (7.35-7.46) Blood Gas PCO2 30 mmHg (35-46) Blood Gas PO2 183 mmHg (71-100) Blood Gas HCO3 21 mmol/L (21-28) Arterial Bld O2 Saturation (Calc) 100 % (92-99) FiO2 100 % White Blood Count 5.8 x10^3/uL (4.0-11.0) Red Blood Count 2.43 x10^6/uL (4.30-5.70) Hemoglobin 7.0 g/dL (13.0-17.5) Hematocrit 22.8 % (39.0-53.0) Mean Corpuscular Volume 94 fL (79-100) Mean Corpuscular Hemoglobin 29 pg (25-35) Mean Corpuscular Hemoglobin Concent 31 g/dL (31-37) Red Cell Distribution Width 19.5 % (11.5-14.5) Platelet Count 149 x10^3/uL (140-400) Neutrophils (%) (Auto) 80 % (31-73) Lymphocytes (%) (Auto) 8 % (24-48) Monocytes (%) (Auto) 8 % (0-9) Eosinophils (%) (Auto) 2 % (0-3) Basophils (%) (Auto) 1 % (0-3) Neutrophils # (Auto) 4.6 x10^3uL (1.8-7.7) Lymphocytes # (Auto) 0.5 x10^3/uL (1.0-4.8) Monocytes # (Auto) 0.5 x10^3/uL (0.0-1.1) Eosinophils # (Auto) 0.1 x10^3/uL (0.0-0.7) Basophils # (Auto) 0.1 x10^3/uL (0.0-0.2) Prothrombin Time 14.1 SEC (9.4-11.4) Prothromb Time International Ratio 1.4 (0.9-1.1) Activated Partial Thromboplast Time 32 SEC (23-33) Sodium Level 144 mmol/L (136-145) Potassium Level 4.5 mmol/L (3.5-5.1) Chloride Level 111 mmol/L (98-107) Carbon Dioxide Level 23 mmol/L (21-32) Anion Gap 10 (6-14) Blood Urea Nitrogen 27 mg/dL (8-26) Creatinine 1.9 mg/dL (0.7-1.3) Estimated GFR (Cockcroft-Gault) 34.4 BUN/Creatinine Ratio 14 (6-20) Glucose Level 108 mg/dL (70-99) Lactic Acid Level 3.2 mmol/L (0.4-2.0) 4.6 mmol/L (0.4-2.0) Calcium Level 8.8 mg/dL (8.5-10.1) Total Bilirubin 0.7 mg/dL (0.2-1.0) Aspartate Amino Transf (AST/SGOT) 14 U/L (15-37) Alanine Aminotransferase (ALT/SGPT) 17 U/L (16-63) Alkaline Phosphatase 66 U/L (46-116) Troponin I Quantitative < 0.017 ng/mL (0-0.055) HJ-Nya-S-Type Natriuretic Peptide 8128 pg/mL (0-449) Total Protein 5.1 g/dL (6.4-8.2) Albumin 1.9 g/dL (3.4-5.0) Albumin/Globulin Ratio 0.6 (1.0-1.7) Urine Collection Type Unknown Urine Color Yellow Urine Clarity Clear Urine pH 5.0 Urine Specific [place] 1.015 Urine Protein 30 mg/dl (NEG-TRACE) Urine Glucose (UA) Neg mg/dL (NEG) Urine Ketones (Stick) Neg mg/dL (NEG) Urine Blood Small (NEG) Urine Nitrite Neg (NEG) Urine Bilirubin Neg (NEG) Urine Urobilinogen Dipstick 0.2 mg/dL (0.2 mg/dL) Urine Leukocyte Esterase Neg (NEG) Urine RBC 3-5 /HPF (0-2) Urine WBC 5-10 /HPF (0-4) Urine Squamous Epithelial Cells Few /LPF Urine Bacteria 0 /HPF (0-FEW) Urine Hyaline Casts Mod /HPF Urine Mucus Mod /LPF Stool Occult Blood Negative (NEG) Influenza Type A (Rapid) Negative (NEGATIVE) Influenza Type B (Rapid) Negative (NEGATIVE) Test 03/28/17 21:20 03/29/17 00:10 03/29/17 05:42 Troponin I Quantitative < 0.017 ng/mL (0-0.055) < 0.017 ng/mL (0-0.055) Lactic Acid Level 3.0 mmol/L (0.4-2.0) 1.9 mmol/L (0.4-2.0) White Blood Count 8.1 x10^3/uL (4.0-11.0) Red Blood Count 2.72 x10^6/uL (4.30-5.70) Hemoglobin 7.7 g/dL (13.0-17.5) Hematocrit 24.4 % (39.0-53.0) Mean Corpuscular Volume 90 fL (79-100) Mean Corpuscular Hemoglobin 28 pg (25-35) Mean Corpuscular Hemoglobin Concent 32 g/dL (31-37) Red Cell Distribution Width 20.0 % (11.5-14.5) Platelet Count 137 x10^3/uL (140-400) Neutrophils (%) (Auto) 87 % (31-73) Lymphocytes (%) (Auto) 4 % (24-48) Monocytes (%) (Auto) 8 % (0-9) Eosinophils (%) (Auto) 1 % (0-3) Basophils (%) (Auto) 1 % (0-3) Neutrophils # (Auto) 7.0 x10^3uL (1.8-7.7) Lymphocytes # (Auto) 0.3 x10^3/uL (1.0-4.8) Monocytes # (Auto) 0.7 x10^3/uL (0.0-1.1) Eosinophils # (Auto) 0.0 x10^3/uL (0.0-0.7) Basophils # (Auto) 0.0 x10^3/uL (0.0-0.2) Sodium Level 146 mmol/L (136-145) Potassium Level 3.8 mmol/L (3.5-5.1) Chloride Level 111 mmol/L (98-107) Carbon Dioxide Level 21 mmol/L (21-32) Anion Gap 14 (6-14) Blood Urea Nitrogen 27 mg/dL (8-26) Creatinine 2.0 mg/dL (0.7-1.3) Estimated GFR (Cockcroft-Gault) 32.4 Glucose Level 107 mg/dL (70-99) Calcium Level 8.8 mg/dL (8.5-10.1) Assessment/Plan Hypotension. Exact etiology unclear. This was responsive to IV fluids and a blood transfusion. I suspect the hypotension may have been related to some component of dehydration as well as the anemia. I should note, he had an echocardiogram in February and he has normal left ventricular function. Atrial fibrillation. This is chronic. He presently has a rapid ventricular rate. Due to his intermittent altered mental status, he does not seem to be a good candidate for oral anticoagulation. I have asked the nurse to start diltiazem infusion if he is not able to take his oral medications. If he can take his oral diltiazem and beta-shahram, then we may not need to start the diltiazem infusion. Essential hypertension. Blood pressure is better after IV fluids and blood transfusion as outlined above. We can attempt to resume the patient's oral medications when able. Mitral regurgitation. One year ago, he had moderate to severe mitral regurgitation. His echocardiogram from here in the hospital 1 month ago shows probable severe mitral regurgitation. We can attempt to add afterload reduction once we are certain that he has recovered from the hypotension. Given his advanced age and debilitated state, he would not be a good candidate for mitral valve surgery. We will treat him conservatively with medication. Problems: LIS WEATHERS Jr, MD Mar 29, 2017 13:25
[2017-03-29] MEDS: traZODone 100 MG TABLET. PO SCH (20:19)
[2017-03-29] MEDS: CETIRIZINE HCL 10 MG TABLET PO SCH (20:19)
[2017-03-29] MEDS: PRAVASTATIN 20 MG TABLET. PO SCH (20:19)
[2017-03-30] VITALS (22 sets, daily range): BP systolic 95–133; BP diastolic 47–73
[2017-03-30] MEDS: MORPHINE SULFATE 2 MG/ML DISP.SYRIN. IV PRN ×5 (00:26→21:45)
--- NOTE | 2017-03-30 00:46 | HP ---
ADMIT DATE: 03/28/2017 HISTORY OF PRESENT ILLNESS: The patient is a 81-year-old male [facility]. The patient has been spiking temperatures as well as generalized weakness and fatigue. The patient is pretty much comatose. He is unresponsive, very agitated in bed as well. He has been declining here for the last 2-3 days prior to the hospitalization as he was [facility] in [facility]. Apparently also had fallen and had a scalp laceration. He is on blood thinner, ____ fair amount as well. The patient when he came in was also examined. There was possible pneumonic process as well as him being in congestive heart failure, elevated lactic acid consistent with a possible sepsis and CHF. PAST MEDICAL HISTORY: Includes he had a cataract extraction, hearing problems, TIA, dementia, chronic atrial fibrillation, mitral valve prolapse, hypercholesterolemia, history of COPD, PEs. He has had history of diverticulitis with perforation, psych problems of depression, influenza and pneumococcal vaccinations are up-to-date. FAMILY HISTORY: Positive for coronary artery disease. SOCIAL HISTORY: The patient was a heavy smoker, 50-60 pack year history of smoking. Denies alcohol use, less noted. Lives out of the nursing facility. REVIEW OF SYSTEMS: The patient unable to give any type of history as noted as he is very agitated and not able to really communicate. PHYSICAL EXAMINATION: GENERAL: White male, somewhat frail appearing, agitated. VITAL SIGNS: Blood pressure 89/60, respiratory rate 32, pulse upwards of 102, temperature approximately 98-99 degrees, some pulse is up to 128. HEENT: The patient is noted frail, skin tenting. Mouth and throat: Dry mucous membranes. Eyes were PERRLA, EOMI. Sclerae are clear. NECK: Supple, without JVD, carotid bruits. No thyromegaly. LUNGS: Diminished, poor movement of air. ABDOMEN: Scaphoid, nontender, no rebound or guarding. Positive bowel sounds, no hepatosplenomegaly noted. Stool hemoccult positive. EXTREMITIES: No clubbing, cyanosis nor edema. GENITOURINARY: Normal male genitalia. EXTREMITIES: No clubbing, cyanosis or edema. NEUROLOGIC: As noted pretty much unresponsive. The reflexes were brisk in both the upper and lower extremities. LABORATORY DATA: Show hemoglobin of 7 and hematocrit of 22, white count 5. Chemistries, 146, 3.8, BUN and creatinine 27, 1.9, lactic acid up to 4.6, although that has come down. He is on triple antibiotics. Urine unremarkable. Influenza screens negative. The patient also consult with Dr. Seth, Cardiology as his BNP was also elevated to 9,000. The patient had CT scan of the head negative for any acute problem there. Chest x-ray showed bilateral infiltrates, ____ suggesting pneumonia. IMPRESSION: Sepsis, acute on top of chronic diastolic heart failure, loss of consciousness, anemia, probable acute gastrointestinal bleed, acute on top of chronic renal failure, dementia, hypotension, chronic paroxysmal atrial fibrillation and mitral regurgitation. PLAN: The patient will go ahead and give a unit of packed RBCs, Lasix for CHF. Consult with Cardiology for the latter. As noted, he was on triple antibiotics. He is on vancomycin, levothyroxine, cefepime, Maxipime 2 grams IV q.12. We will continue to monitor the patient accordingly, make further evaluation on him as indicated per those results. VENKAT DANIELSON MD DR: MARLENE/ivy JOB#: [id number] / [id number]
[2017-03-30] MEDS: IPRATRPIUM/ALBUTEROL 0.5/2.5MG 3 ML NEBU. NEB SCH ×4 (05:01→21:01)
[2017-03-30 06:04] LABS: BASO % 0 % (0-3); EOS # 0.1 x10^3/uL (0.0-0.7); EOS % 1 % (0-3); HEMATOCRIT 26.2 % (39.0-53.0); HEMOGLOBIN 8.4 g/dL (13.0-17.5); LYMPH # 0.3 x10^3/uL (1.0-4.8); LYMPH % 3 % (24-48); MEAN CORPUSCULAR HEMOGLOBIN 29 pg (25-35); MEAN CORPUSCULAR HGB CONC 32 g/dL (31-37); MEAN CORPUSCULAR VOLUME 90 fL (79-100); MONO # 0.7 x10^3/uL (0.0-1.1); MONO % 7 % (0-9); NEUT # 7.8 x10^3uL (1.8-7.7); NEUT % 88 % (31-73); PLATELET COUNT 166 x10^3/uL (140-400); RED BLOOD COUNT 2.91 x10^6/uL (4.30-5.70); RED CELL DISTRIBUTION WIDTH 20.1 % (11.5-14.5); WHITE BLOOD COUNT 8.8 x10^3/uL (4.0-11.0)
[2017-03-30 06:18] LABS: ALBUMIN/GLOBULIN RATIO 0.6 (1.0-1.7); CALCIUM 9.3 mg/dL (8.5-10.1); GFR 32.4; POTASSIUM 3.4 mmol/L (3.5-5.1); TOTAL BILIRUBIN 0.9 mg/dL (0.2-1.0); TOTAL PROTEIN 5.4 g/dL (6.4-8.2)
[2017-03-30] MEDS: FERROUS SULFATE 325 MG TABLET. PO SCH ×2 (08:00→17:00)
[2017-03-30] MEDS: ASPIRIN 81 MG TAB.CHEW PO SCH (09:00)
[2017-03-30] MEDS: SENNOSIDES/DOCUSATE 8.6/50MG TABLET. PO SCH (09:00)
[2017-03-30] MEDS: PANTOPRAZOLE 40 MG TABLET. PO SCH (09:00)
[2017-03-30] MEDS: FUROSEMIDE 40 MG TABLET PO SCH (09:00)
[2017-03-30] MEDS: FOLIC ACID 1 MG TABLET PO SCH (09:00)
[2017-03-30] MEDS: POLYETHYLENE GLYCOL 3350 17 GM PACKET. PO SCH (09:00)
[2017-03-30] MEDS: POTASSIUM CHLORIDE 20 MEQ TABLET.ER. PO SCH (09:00)
[2017-03-30] MEDS: METOPROLOL TART IMMED RELEASE 25 MG TABLET PO SCH ×2 (09:00→21:00)
[2017-03-30] MEDS: APIXABAN 5 MG TABLET. PO SCH ×2 (09:00→21:00)
[2017-03-30] MEDS: THIAMINE 100 MG TABLET. PO SCH (09:00)
[2017-03-30] MEDS: LACTOBACILLUS RHAMNOSUS GG 1 CAPSULE. PO SCH ×2 (09:00→21:00)
[2017-03-30] MEDS: CEFEPIME HCL IV Push 2 GM VIAL. IVP SCH ×2 (09:40→21:45)
[2017-03-30 17:40] LABS: VANC TR 8.6 mcg/mL (10.0-20.0)
[2017-03-30] MEDS: VANCOMYCIN 1 GM in IV NORMAL SALINE 250ML 250 ML IV SCH (17:55)
[2017-03-30] MEDS: AA 3%/ELECTROLYTE-TPN SOLN/GLY 1,000 ML IV SCH (17:56)
[2017-03-30] MEDS: VANCOMYCIN PER PHARMACY MC PRN (17:57)
[2017-03-30] MEDS: CETIRIZINE HCL 10 MG TABLET PO SCH (21:00)
[2017-03-30] MEDS: PRAVASTATIN 20 MG TABLET. PO SCH (21:00)
[2017-03-30] MEDS: traZODone 100 MG TABLET. PO SCH (21:00)
[2017-03-31] VITALS (25 sets, daily range): BP systolic 104–132; BP diastolic 51–74
[2017-03-31] MEDS: MORPHINE SULFATE 2 MG/ML DISP.SYRIN. IV PRN ×3 (00:58→17:27)
--- NOTE | 2017-03-31 01:06 | CONS ---
DATE OF CONSULTATION: 03/29/2017 REFERRING PHYSICIAN: Dr. Roper REASON FOR CONSULTATION: Acute mental status changes. HISTORY OF PRESENT ILLNESS: This is a 81-year-old right-handed male who is a resident in a local [facility], was admitted through Emergency Room after he found having hypotension and acute mental status changes. The patient was anemic and he received IV fluid with 1 pack of red blood cells. The blood pressure has been improving since admission. Neuro consult was requested because the patient has acute mental status changes. Currently, the patient is drowsy, but open eyes to commands, but unable to provide any information. PAST MEDICAL HISTORY: Significant for dementia, stroke/TIA, atrial fibrillation, congestive heart failure, hyperlipidemia, hypertension, COPD, pulmonary embolism, GERD, diverticulitis, depressions, and skin cancer. SOCIAL HISTORY: Unobtainable. FAMILY HISTORY: Positive for coronary artery disease, his sister. CURRENT HOME MEDICATIONS: Tylenol, albuterol inhaler and nebulizer, Eliquis, aspirin, diltiazem, ferrous sulfate, folic acid, Lasix, metoprolol, lorazepam, pantoprazole, ____, trazodone, multivitamins. ALLERGIES: No known drug allergies. REVIEW OF SYSTEMS: Not obtainable. PHYSICAL EXAMINATION: GENERAL: Well developed, well nourished male, not in acute distress. VITAL SIGNS: Blood pressure 114/60, respiratory rate 27, pulse is 126, oxygen saturation is 100% on 2 liters by nasal cannula. HEENT: Normocephalic, atraumatic. NECK: Supple. Negative for carotid bruit, lymphadenopathy, JVD or thyromegaly. LUNGS: With diminished breath sounds. No wheezing. CARDIOVASCULAR: Irregularly irregular rhythm, normal S1, S2. There is a 2/6 holosystolic murmur. ABDOMEN: Soft. Bowel sounds positive. EXTREMITIES: Negative for cyanosis, clubbing or edema. NEUROLOGICAL EXAM: Mental Status: The patient is drowsy, opens eyes to commands. Does follow 1 step command. Able to mention some words, but not complete sentences. Language, memory, judgment, and abstract thinking are difficult to evaluate at this time because of the drowsiness. Cranial nerves: The pupils are equal to light; however, he opens the left eye more than the right eye. There is no facial asymmetry. Hearing appeared to be intact. Gag reflex is present. No nystagmus. No facial motor or sensory deficit. Further evaluation is limited. Motor examination: The patient moves his upper and lower extremities equally and spontaneously and to noxious stimuli. Sensory: The patient withdraws his upper and lower extremity to noxious stimuli. Deep tendon reflexes were symmetric and hypoactive without pathology responses. Gait not tested. DIAGNOSTIC DATA: Initial nonenhanced head CT scan revealed no acute intracranial process, but showed chronic small vessel ischemic disease of the white matter bilaterally. A chest x-ray revealed patchy bilateral pulmonary infiltrates suggesting pneumonia versus pulmonary edema. Thoracic spine CT scan revealed mild deformity of T3 with mild degenerative changes in the thoracic spine, pulmonary edema and less likely pneumonia. LABORATORY DATA: CBC revealed white blood cells of 8.1, hemoglobin 7.7, hematocrit 24.4, platelet count 137,000. Chemistry: Sodium 146, potassium 3.8, chloride 111, CO2 of 21, BUN 27, creatinine 2, glucose 107, calcium 8.8. Lactic acid is 1.3. It was 3 early this morning. Troponin level less than 0.17. Coagulation: PT is 14.1, INR 1.4 and a PTT is 32. Urinalysis: Negative leukocyte esterase and nitrite with white blood cells of 5-10. Stool occult blood negative. IMPRESSION: 1. Acute mental status changes, probably multifactorial, infectious versus metabolic derangement versus dehydration versus renal insufficiency. 2. Anemia, required 1 unit of packed red cells. 3. Multiple medical problems include pulmonary edema versus pneumonia, diverticulitis, hypertension, hyperlipidemia, depression, anxiety, atrial fibrillation, dementia, history of mitral valve prolapse, chronic obstructive pulmonary disease. RECOMMENDATIONS: 1. Continue with current aggressive management for atrial fibrillation and for pneumonia. 2. When the patient is awake, will resume his oral medications and add Aricept 5 mg at bedtime. M Kendall BOYLE MD DR: AUSTIN/ivy JOB#: [id number] / [id number]
[2017-03-31] MEDS: IPRATRPIUM/ALBUTEROL 0.5/2.5MG 3 ML NEBU. NEB SCH (05:05)
[2017-03-31] MEDS: AA 3%/ELECTROLYTE-TPN SOLN/GLY 1,000 ML IV SCH ×2 (06:34→19:46)
[2017-03-31 06:49] LABS: BASO % 1 % (0-3); EOS # 0.1 x10^3/uL (0.0-0.7); EOS % 2 % (0-3); HEMATOCRIT 27.3 % (39.0-53.0); HEMOGLOBIN 8.3 g/dL (13.0-17.5); LYMPH # 0.3 x10^3/uL (1.0-4.8); LYMPH % 4 % (24-48); MEAN CORPUSCULAR HEMOGLOBIN 29 pg (25-35); MEAN CORPUSCULAR HGB CONC 30 g/dL (31-37); MEAN CORPUSCULAR VOLUME 94 fL (79-100); MONO # 0.7 x10^3/uL (0.0-1.1); MONO % 10 % (0-9); NEUT # 6.6 x10^3uL (1.8-7.7); NEUT % 85 % (31-73); PLATELET COUNT 194 x10^3/uL (140-400); RED BLOOD COUNT 2.91 x10^6/uL (4.30-5.70); RED CELL DISTRIBUTION WIDTH 20.3 % (11.5-14.5); WHITE BLOOD COUNT 7.9 x10^3/uL (4.0-11.0)
[2017-03-31 06:57] LABS: CALCIUM 9.9 mg/dL (8.5-10.1); CREATININE 2.1 mg/dL (0.7-1.3); GFR 30.6; POTASSIUM 3.8 mmol/L (3.5-5.1)
[2017-03-31 07:26] LABS: ANISOCYTOSIS MOD; OVALOCYTES OCC; PLT ESTIMATE ADEQUATE (ADEQUATE); POLYCHROMASIA MOD
[2017-03-31 07:27] LABS: HYPOCHROMIA SLIGHT; MICROCYTOSIS SLIGHT
[2017-03-31] MEDS: FERROUS SULFATE 325 MG TABLET. PO SCH ×2 (08:00→17:00)
[2017-03-31] MEDS: APIXABAN 5 MG TABLET. PO SCH ×2 (09:00→21:00)
[2017-03-31] MEDS: POTASSIUM CHLORIDE 20 MEQ TABLET.ER. PO SCH (09:00)
[2017-03-31] MEDS: FOLIC ACID 1 MG TABLET PO SCH (09:00)
[2017-03-31] MEDS: POLYETHYLENE GLYCOL 3350 17 GM PACKET. PO SCH (09:00)
[2017-03-31] MEDS: FUROSEMIDE 40 MG TABLET PO SCH (09:00)
[2017-03-31] MEDS: LACTOBACILLUS RHAMNOSUS GG 1 CAPSULE. PO SCH ×2 (09:00→21:00)
[2017-03-31] MEDS: PANTOPRAZOLE 40 MG TABLET. PO SCH (09:00)
[2017-03-31] MEDS: SENNOSIDES/DOCUSATE 8.6/50MG TABLET. PO SCH (09:00)
[2017-03-31] MEDS: METOPROLOL TART IMMED RELEASE 25 MG TABLET PO SCH ×2 (09:00→21:00)
[2017-03-31] MEDS: ASPIRIN 81 MG TAB.CHEW PO SCH (09:00)
[2017-03-31] MEDS: THIAMINE 100 MG TABLET. PO SCH (09:00)
[2017-03-31] MEDS ORDERED: VANCOMYCIN 1 GM in IV DEXTROSE 5% 250 ML IV SCH ×2 (10:58→18:00)
[2017-03-31] MEDS: CEFEPIME HCL IV Push 2 GM VIAL. IVP SCH (11:07)
[2017-03-31] MEDS ORDERED: CEFEPIME HCL IV Push 2 GM VIAL. IVP SCH (11:45)
--- NOTE | 2017-03-31 20:56 | PN ---
DATE: SUBJECTIVE: The patient has been restless and not able to communicate since admission. OBJECTIVE: GENERAL: Well-developed, well-nourished white male, not in acute distress. VITAL SIGNS: Blood pressure 123/55, respiratory rate 24, pulse is 118, temperature 97.8, oxygen saturation 98% on 2 liters by nasal cannula. HEENT: Normocephalic, atraumatic, otherwise unremarkable. NECK: Supple. Negative for carotid bruit, lymphadenopathy or thyromegaly. LUNGS: Diminished breath sounds. CARDIOVASCULAR: Regular rhythm, normal S1, S2. A 2/6 systolic murmur. ABDOMEN: Soft. Bowel sounds positive. EXTREMITIES: Negative for cyanosis, clubbing or pitting edema. NEUROLOGICAL EXAM: Mental Status: The patient is restless, open eyes to commands, answer very simple questions, counts fingers. Judgment and abstract thinking is difficult to evaluate. The patient has history of dementia. Cranial nerves are grossly intact. There is no facial motor or sensory deficit. Hearing appears to be intact. Gag reflex is present, but weak. The patient moves his upper and lower extremities to noxious stimuli. Deep tendon reflexes were symmetric and hypoactive with absent Achilles responses. LABORATORY DATA: CBC revealed white blood cells of 8.8 thousand, hemoglobin 8.4, hematocrit 26.2, platelet count 166,000. Chemistry revealed sodium of 154, potassium 3.4, chloride 118, CO2 of 21, BUN 28, creatinine 2, glucose is 103, calcium 9.3. Liver enzymes are normal. IMPRESSION: 1. Acute encephalopathy, likely multifactorial. 2. Dementia. 3. Renal failure/dehydration and renal insufficiency. 4. Anemia of probably iron deficiency. 5. Chronic type anemia. 6. Hypernatremia and mild hypokalemia. 7. Pneumonia versus pulmonary edema. 8. Rule out a gastrointestinal bleed. 9. Paroxysmal atrial fibrillations and mitral regurgitation. The patient has been recently on a Cardizem drip. RECOMMENDATIONS: 1. Continue with current management and medications. 2. Avoid sedation as much as possible. M Kendall BOYLE MD DR: AUSTIN/ivy JOB#: [id number] / [id number]
[2017-03-31] MEDS: PRAVASTATIN 20 MG TABLET. PO SCH (21:00)
[2017-03-31] MEDS: CETIRIZINE HCL 10 MG TABLET PO SCH (21:00)
[2017-03-31] MEDS: traZODone 100 MG TABLET. PO SCH (21:00)
[2017-04-01] VITALS (12 sets, daily range): BP systolic 114–135; BP diastolic 44–71
--- NOTE | 2017-04-01 04:10 | PN ---
DATE: 03/31/2017 SUBJECTIVE: A 81-year-old male, still very lethargic and uncomfortable, writhing in the bed. OBJECTIVE: VITAL SIGNS: Blood pressure 110/60, respiratory rate 16, pulse 124. He is receiving Procalamine. The patient; otherwise, seems to be resting fairly comfortably, making fairly good progress overall. LUNGS: Diminished throughout, poor movement of air. CARDIOVASCULAR: Regular sinus rhythm, S1, S2, without murmur, rub, thrill or extra heart sound. The patient; otherwise, basically is unresponsive, still receiving his peripheral nutrition. IMPRESSION: Acute change in mental status, sepsis, acute on top of chronic diastolic heart failure, loss of consciousness, anemia, probable acute gastrointestinal bleed, acute on top of chronic renal failure, dementia, hypertension, chronic paroxysmal atrial fibrillation and mitral regurgitation, also severe protein malnutrition. PLAN: Continue with present aggressive therapy as well as nutritional supplementation. VENKAT DANIELSON MD DR: MARLENE/ivy JOB#: [id number] / [id number]
[2017-04-01] MEDS: MORPHINE SULFATE 2 MG/ML DISP.SYRIN. IV PRN (05:52)
[2017-04-01] MEDS: AA 3%/ELECTROLYTE-TPN SOLN/GLY 1,000 ML IV SCH (07:12)
[2017-04-01] MEDS: FERROUS SULFATE 325 MG TABLET. PO SCH (08:00)
[2017-04-01] MEDS: LACTOBACILLUS RHAMNOSUS GG 1 CAPSULE. PO SCH (08:12)
[2017-04-01] MEDS: ASPIRIN 81 MG TAB.CHEW PO SCH (08:12)
[2017-04-01] MEDS: SENNOSIDES/DOCUSATE 8.6/50MG TABLET. PO SCH (08:13)
[2017-04-01] MEDS: POLYETHYLENE GLYCOL 3350 17 GM PACKET. PO SCH (08:13)
[2017-04-01] MEDS: POTASSIUM CHLORIDE 20 MEQ TABLET.ER. PO SCH (08:13)
[2017-04-01] MEDS: FOLIC ACID 1 MG TABLET PO SCH (08:13)
[2017-04-01] MEDS: METOPROLOL TART IMMED RELEASE 25 MG TABLET PO SCH (08:13)
[2017-04-01] MEDS: FUROSEMIDE 40 MG TABLET PO SCH (08:13)
[2017-04-01] MEDS: PANTOPRAZOLE 40 MG TABLET. PO SCH (08:13)
[2017-04-01] MEDS: APIXABAN 5 MG TABLET. PO SCH (08:13)
[2017-04-01] MEDS: THIAMINE 100 MG TABLET. PO SCH (08:14)
--- NOTE | 2017-04-01 08:55 | PDOC ---
AYAH GUTIERREZ BENEFITS CONSULTANT 04/01/17 0855: PROGRESS NOTES Diagnosis Problem Problems Medical Problems: (1) Hypotension Status: Acute Assessment We are seeing the patient for atrial fibrillation Atrial fibrillation. This is chronic. His rate is in the 120 on Cardizem gtt however he is going to hospice and it will be stopped. He is not taking any thing by mouth. Will plan to sign off. Mitral regurgitation. Severe mitral regurgitation. Plan for Hospice Problems: Subjective He is not responding to questions. Plan for hospice Objective Vital Signs Date Time Temp Pulse Resp B/P (MAP) Pulse Ox O2 Delivery O2 Flow Rate FiO2 04/01/17 08:13 120 04/01/17 07:36 22 128/70 (89) 94 Nasal Cannula 2.0 04/01/17 05:17 97.4 Intake and Output 04/01/17 07:00 Intake Total 1804 ml Output Total 825 ml Balance 979 ml Intake Oral 0 ml IV Total 1804 ml Output Urine Total 825 ml Abdomen: Normal bowel sounds, Soft Heart: Regular rate, Normal S1, Normal S2, Other (+Murmur) Extremities: No edema, Normal pulses General: Alert Lungs: Clear to auscultation Psych/Mental Status: Other (Confused) Review of Relevant I have reviewed the following items miguel (where applicable) has been applied. Labs Laboratory Tests Test 03/30/17 17:15 03/31/17 06:20 Vancomycin Level Trough 8.6 mcg/mL (10.0-20.0) Vancomycin Last Dose Date 03/29/17 Vancomycin Last Dose Time 1800 White Blood Count 7.9 x10^3/uL (4.0-11.0) Red Blood Count 2.91 x10^6/uL (4.30-5.70) Hemoglobin 8.3 g/dL (13.0-17.5) Hematocrit 27.3 % (39.0-53.0) Mean Corpuscular Volume 94 fL (79-100) Mean Corpuscular Hemoglobin 29 pg (25-35) Mean Corpuscular Hemoglobin Concent 30 g/dL (31-37) Red Cell Distribution Width 20.3 % (11.5-14.5) Platelet Count 194 x10^3/uL (140-400) Neutrophils (%) (Auto) 85 % (31-73) Lymphocytes (%) (Auto) 4 % (24-48) Monocytes (%) (Auto) 10 % (0-9) Eosinophils (%) (Auto) 2 % (0-3) Basophils (%) (Auto) 1 % (0-3) Neutrophils # (Auto) 6.6 x10^3uL (1.8-7.7) Lymphocytes # (Auto) 0.3 x10^3/uL (1.0-4.8) Monocytes # (Auto) 0.7 x10^3/uL (0.0-1.1) Eosinophils # (Auto) 0.1 x10^3/uL (0.0-0.7) Basophils # (Auto) 0.0 x10^3/uL (0.0-0.2) Platelet Estimate Adequate (ADEQUATE) Polychromasia Mod Hypochromasia Slight Anisocytosis Mod Microcytosis Slight Ovalocytes Occ Sodium Level 156 mmol/L (136-145) Potassium Level 3.8 mmol/L (3.5-5.1) Chloride Level 122 mmol/L (98-107) Carbon Dioxide Level 23 mmol/L (21-32) Anion Gap 11 (6-14) Blood Urea Nitrogen 29 mg/dL (8-26) Creatinine 2.1 mg/dL (0.7-1.3) Estimated GFR (Cockcroft-Gault) 30.6 Glucose Level 113 mg/dL (70-99) Calcium Level 9.9 mg/dL (8.5-10.1) Microbiology 03/28/17 Blood Culture - Preliminary, Resulted NO GROWTH AFTER 3 DAYS 03/28/17 Urine Culture - Final, Complete 03/28/17 Urine Culture Result 1 (JERAMY) - Final, Complete Medications Current Medications Sodium Chloride 1,000 ml @ 1,000 mls/hr 1X ONCE IV Last administered on at 15:00; Start 03/28/17 at 15:00; Stop 03/28/17 at 16:00; Status DC Pantoprazole Sodium 40 mg/ Sodium Chloride 100 ml @ 10 mls/hr 1X ONCE IV ; Start 03/28/17 at 16:15; Stop 03/29/17 at 01:58; Status DC Pantoprazole Sodium (Protonix Vial) 80 mg 1X ONCE IVP Last administered on 03/28at 16:00; Start 03/28/17 at 16:00; Stop 03/28/17 at 16:01; Status DC Albuterol/ Ipratropium (Duoneb) 3 ml 1X ONCE NEB Last administered on at 16:15; Start 03/28/17 at 16:30; Stop 03/28/17 at 16:31; Status DC Vancomycin HCl (Vanco Per Pharmacy) 1 each PRN DAILY PRN MC SEE COMMENTS Last administered on 03/30/17at 17:57; Start 03/28/17 at 16:15 Levofloxacin/ Dextrose (Levaquin Per Pharmacy) 1 each PRN DAILY PRN MC SEE COMMENTS Last administered on 03/28/17at 19:28; Start 03/28/17 at 16:15 Cefepime HCl 2 gm/ Sodium Chloride 100 ml @ 200 mls/hr Q8HRS IV ; Start at 22:00; Status UNV Levofloxacin/ Dextrose 150 ml @ As Directed STK-MED ONCE IV ; Start 03/28/17 at 16:17; Stop 03/28/17 at 16:18; Status DC Furosemide (Lasix) 20 mg 1X ONCE IVP Last administered on 03/28/17at 16:36; Start 03/28/17 at 16:45; Stop 03/28/17 at 16:46; Status DC Ondansetron HCl (Zofran) 4 mg PRN Q4HRS PRN IV NAUSEA/VOMITING; Start 03/28/17 at 16:30; Stop 03/29/17 at 16:29; Status DC Levofloxacin/ Dextrose 150 ml @ 150 mls/hr Q48H IV Last administered on at 16:26; Start 03/28/17 at 16:00 Cefepime HCl (Maxipime) 2 gm Q12HR IVP Last administered on 03/31/17at 11:07; Start 03/28/17 at 21:00; Stop 03/31/17 at 11:35; Status DC Vancomycin HCl 1.5 gm/Sodium Chloride 500 ml @ 250 mls/hr 1X ONCE IV Last administered on 03/28/17at 18:00; Start 03/28/17 at 18:00; Stop 03/28/17 at 19:59; Status DC Vancomycin HCl 1 gm/Sodium Chloride 250 ml @ 250 mls/hr Q24H IV Last administered on 03/30/17at 17:55; Start 03/29/17 at 18:00; Stop 03/31/17 at 10:58; Status DC Vancomycin HCl 1 each 1X ONCE MC ; Start 03/30/17 at 17:30; Stop 03/30/17 at 17: 31; Status DC Lactobacillus Rhamnosus (Culturelle) 1 cap BID PO Last administered on at 22:21; Start 03/28/17 at 21:00 Norepinephrine Bitartrate 16 mg/ Sodium Chloride 266 ml @ 0.99 mls/hr CONT PRN IV SEE I/O RECORD; Start 03/28/17 at 17:45 Furosemide (Lasix) 20 mg 1X ONCE IVP Last administered on 03/28/17at 22:01; Start 03/28/17 at 18:00; Stop 03/28/17 at 18:01; Status DC Sodium Chloride 500 ml @ As Directed STK-MED ONCE .ROUTE ; Start 03/28/17 at 17: 59; Stop 03/28/17 at 18:00; Status DC Vancomycin HCl 1 gm STK-MED ONCE .ROUTE ; Start 03/28/17 at 17:59; Stop 03/28/17 at 18:00; Status DC Albuterol Sulfate (Ventolin) 2.5 mg PRN Q4HRS PRN NEB SHORTNESS OF BREATH; Start 03/28/17 at 18:30 Apixaban (Eliquis) 5 mg BID PO Last administered on 03/29/17at 10:24; Start at 21:00 Aspirin (Children'S Aspirin) 81 mg DAILY PO ; Start 03/29/17 at 09:00 Cetirizine HCl (ZyrTEC) 10 mg HS PO Last administered on 03/28/17at 22:22; Start 03/28/17 at 21:00 Furosemide (Lasix) 80 mg DAILY PO ; Start 03/29/17 at 09:00; Stop 03/29/17 at 09: 00; Status DC Albuterol/ Ipratropium (Duoneb) 3 ml TID NEB ; Start 03/28/17 at 21:00; Stop 03/28 at 21:00; Status DC Metoprolol Tartrate (Lopressor) 25 mg BID PO ; Start 03/28/17 at 21:00 Pantoprazole Sodium (Protonix) 40 mg DAILY PO Last administered on 03/29/17at 10: 25; Start 03/29/17 at 09:00 Potassium Chloride (Klor-Con) 20 meq DAILY PO ; Start 03/29/17 at 09:00 Trazodone HCl (Desyrel) 100 mg QHS PO Last administered on 03/28/17at 22:21; Start 03/28/17 at 21:00 Non-Formulary Medication 360 mg DAILY PO ; Start 03/29/17 at 09:00; Stop 03/29/17 at 09:00; Status DC Non-Formulary Medication 1 cap BID PO ; Start 03/28/17 at 21:00; Stop 03/28/17 at 21:00; Status DC Pravastatin Sodium (Pravachol) 40 mg QHS PO Last administered on 03/28/17at 22:21 ; Start 03/28/17 at 21:00 Albuterol/ Ipratropium (Duoneb) 3 ml RTQID NEB Last administered on 03/31/17at 05 :05; Start 03/28/17 at 21:15; Stop 03/31/17 at 13:01; Status DC Acetaminophen (Tylenol) 650 mg PRN Q4HRS PRN PO PAIN / TEMP; Start 03/28/17 at 20:45 Ferrous Sulfate (Feosol) 325 mg BIDWMEALS PO ; Start 03/29/17 at 08:00 Folic Acid (Folic Acid) 1 mg DAILY PO ; Start 03/29/17 at 09:00 Polyethylene Glycol (miraLAX) 17 gm DAILY PO ; Start 03/29/17 at 09:00 Senna/Docusate Sodium (Senna Plus) 1 tab DAILY PO ; Start 03/29/17 at 09:00 Thiamine HCl (Vitamin B-1) 100 mg DAILY PO ; Start 03/29/17 at 09:00 Furosemide (Lasix) 40 mg DAILY PO ; Start 03/29/17 at 09:00 Diltiazem HCl (Cardizem 24hr Cd) 180 mg DAILY PO Last administered on 03/29/17at 10:25; Start 03/29/17 at 09:00 Sodium Chloride 1,000 ml @ 50 mls/hr 1X ONCE IV Last administered on at 19:00; Start 03/28/17 at 21:15; Stop 03/29/17 at 17:14; Status DC Lorazepam (Ativan) 0.5 mg PRN Q8HRS PRN IV ANXIETY / AGITATION Last administered on 03/29/17at 20:18; Start 03/28/17 at 22:00 Morphine Sulfate (Morphine 2mg Syringe) 2 mg PRN Q2HR PRN IV PAIN Last administered on 04/01/17at 05:52; Start 03/29/17 at 10:15 Diltiazem HCl 100 mg/Dextrose 100 ml @ 5 mls/hr CONT PRN IV SEE I/O RECORD Last administered on 03/29/17at 18:38; Start 03/29/17 at 18:30; Stop 03/30/17 at 01: 13; Status DC Diltiazem HCl (Cardizem) 125 mg STK-MED ONCE IV ; Start 03/30/17 at 01:10; Stop 03/30/17 at 01:11; Status DC Diltiazem HCl 125 mg/Dextrose 125 ml @ 5 mls/hr CONT PRN IV SEE I/O RECORD Last administered on 04/01/17at 00:45; Start 03/30/17 at 01:15 Amino Acids/ Glycerin/ Electrolytes 1,000 ml @ 80 mls/hr [id number] IV Last administered on 04/01/17at 07:12; Start 03/30/17 at 17:30 Vancomycin HCl 1 each 1X ONCE MC ; Start 04/01/17 at 17:30; Stop 04/01/17 at 17: 31 Vancomycin HCl 1 gm/Dextrose 250 ml @ 250 mls/hr Q24H IV ; Start 03/31/17 at 10: 58; Stop 03/31/17 at 11:59; Status DC Cefepime HCl (Maxipime) 2 gm Q24H IVP ; Start 03/31/17 at 11:45; Stop 03/31/17 at 11:58; Status DC Cefepime HCl (Maxipime) 2 gm Q24H IVP ; Start 04/01/17 at 11:00 Vancomycin HCl 1 gm/Dextrose 250 ml @ 250 mls/hr Q24H IV Last administered on 03/31/17at 17:27; Start 03/31/17 at 18:00 Active Scripts Active Reported Cetirizine Hcl 10 Mg Tablet 1 Tab PO HS LAST DOSE GIVEN: DATE: TIME: NEXT DOSE DUE: DATE: TIME: Tylenol (Acetaminophen) 325 Mg Tablet 650 Mg PO PRN Q4HRS PRN Ferrous Sulfate 325 Mg Tablet 1 Tab PO BID Vitamin B-1 (Thiamine Mononitrate) 100 Mg Tablet 100 Mg PO DAILY Folic Acid 1 Mg Tablet 1 Tab PO DAILY Senna Plus Tablet (Sennosides/Docusate Sodium) 1 Each Tablet 1 Each PO DAILY Miralax (Polyethylene Glycol 3350) 17 Gm Powd.pack 17 Gm PO DAILY Metoprolol Tartrate 25 Mg Tablet 1 Tab PO BID LAST DOSE GIVEN: DATE: TIME: NEXT DOSE DUE: DATE: TIME: Trazodone Hcl 100 Mg Tablet 1 Tab PO QHS LAST DOSE GIVEN: DATE: TIME: NEXT DOSE DUE: DATE: TIME: Furosemide 80 Mg Tablet 0.5 Tab PO DAILY LAST DOSE GIVEN: DATE: TIME: NEXT DOSE DUE: DATE: TIME: Duoneb 0.5-3(2.5) Mg/3 Ml (Albuterol/Ipratropium) 3 Ml Ampul.neb 3 Ml NEB TID LAST DOSE GIVEN: DATE: TIME: NEXT DOSE DUE: DATE: TIME: Protonix (Pantoprazole Sodium) 40 Mg Tablet.dr 1 Tab PO DAILY LAST DOSE GIVEN: DATE: TIME: NEXT DOSE DUE: DATE: TIME: Tiazac (Diltiazem Hcl) 360 Mg Capsule.er 0.5 Tab PO DAILY LAST DOSE GIVEN: DATE: TIME: NEXT DOSE DUE: DATE: TIME: Albuterol Sulfate Neb Soln (Albuterol Sulfate) 2.5 Mg/3 Ml Vial.neb 1 Vial NEB PRN Q4HRS LAST DOSE GIVEN: DATE: TIME: NEXT DOSE DUE: DATE: TIME: Aspirin 81 Mg Tab.chew 81 Mg PO DAILY LAST DOSE GIVEN: DATE: TIME: NEXT DOSE DUE: DATE: TIME: Eliquis (Apixaban) 5 Mg Tablet 5 Mg PO BID LAST DOSE GIVEN: DATE: TIME: NEXT DOSE DUE: DATE: TIME: Klor-Con M20 (Potassium Chloride) 20 Meq Tab.er.prt 20 Meq PO DAILY LAST DOSE GIVEN: DATE: TIME: NEXT DOSE DUE: DATE: TIME: Pravastatin Sodium 40 Mg Tablet 40 Mg PO QHS LAST DOSE GIVEN: DATE: TIME: NEXT DOSE DUE: DATE: TIME: Vitals/I & O Vital Sign - Last 24 Hours 03/31/17 03/31/17 03/31/17 03/31/17 09:00 09:57 10:00 10:44 Temp 98.1 Pulse 122 120 120 Resp 12 B/P (MAP) 122/59 (80) 108/57 (74) 112/70 (84) Pulse Ox 100 97 100 100 O2 Delivery Nasal Cannula Nasal Cannula Nasal Cannula Nasal Cannula O2 Flow Rate 2.0 2.0 2.0 2.0 03/31/17 03/31/17 03/31/17 03/31/17 11:45 12:00 13:02 14:03 Pulse 123 122 129 Resp 22 B/P (MAP) 104/52 (69) 113/55 (74) 108/66 (80) Pulse Ox 99 95 100 O2 Delivery Nasal Cannula Nasal Cannula Nasal Cannula Nasal Cannula O2 Flow Rate 2.0 2.0 2.0 2.0 03/31/17 03/31/17 03/31/17 03/31/17 15:00 16:00 16:18 17:05 Pulse 123 118 122 Resp B/P (MAP) 119/51 (73) 123/70 (87) 118/66 (83) Pulse Ox 97 96 100 O2 Delivery Nasal Cannula Nasal Cannula Nasal Cannula Nasal Cannula O2 Flow Rate 2.0 2.0 2.0 2.0 03/31/17 03/31/17 03/31/17 03/31/17 17:27 17:57 18:01 18:58 Pulse 128 122 Resp 23 B/P (MAP) 124/61 (82) 112/68 (83) Pulse Ox 99 100 100 94 O2 Delivery Nasal Cannula Nasal Cannula Nasal Cannula Nasal Cannula O2 Flow Rate 2.0 2.0 2.0 2.0 03/31/17 03/31/17 03/31/17 03/31/17 19:42 19:50 20:00 20:48 Temp 97.6 Pulse 124 124 Resp 25 B/P (MAP) 117/67 (84) 126/74 (91) Pulse Ox 100 100 O2 Delivery Nasal Cannula Nasal Cannula Nasal Cannula O2 Flow Rate 2.0 2.0 2.0 03/31/17 03/31/17 03/31/17 03/31/17 21:00 21:52 22:48 23:51 Pulse 124 124 121 120 Resp 22 28 26 B/P (MAP) 126/74 132/69 (90) 121/62 (81) 111/69 (83) Pulse Ox 93 94 97 O2 Delivery Nasal Cannula Nasal Cannula Nasal Cannula O2 Flow Rate 2.0 2.0 2.0 03/31/17 04/01/17 04/01/17 04/01/17 23:59 00:56 01:57 02:51 Pulse 121 127 129 Resp 27 24 24 B/P (MAP) 114/68 (83) 121/63 (82) 124/71 (88) Pulse Ox 100 100 94 O2 Delivery Nasal Cannula Room Air Room Air Room Air O2 Flow Rate 2.0 04/01/17 04/01/17 04/01/17 04/01/17 03:54 04:00 04:48 05:17 Temp 97.4 Pulse 125 124 Resp 30 14 B/P (MAP) 119/65 (83) 119/57 (77) Pulse Ox 95 93 O2 Delivery Room Air Nasal Cannula Room Air Nasal Cannula O2 Flow Rate 2.0 2.0 04/01/17 04/01/17 04/01/17 04/01/17 05:48 05:52 07:35 07:36 Pulse 121 115 Resp 22 26 22 B/P (MAP) 135/64 (87) 128/70 (89) Pulse Ox 94 93 94 O2 Delivery Nasal Cannula Nasal Cannula Nasal Cannula Nasal Cannula O2 Flow Rate 2.0 2.0 2.0 2.0 04/01/17 04/01/17 08:12 08:13 Pulse 120 120 Intake and Output 03/31/17 03/31/17 04/01/17 15:00 23:00 07:00 Intake Total 0 ml 1118 ml 686 ml Output Total 425 ml 400 ml Balance 0 ml 693 ml 286 ml JAZMINE OKEEFE MD 04/01/17 1001: PROGRESS NOTES Assessment I have participated in the care of this patient and I have reviewed and agree with all pertinent clinical information above including history, exam, and recommendations. The patient is unable to give a history. He is agitated and in restraints. However he is able to lie flat, and has a O2 sats of 97% on room air. Constitutional: no acute distress, toxic appearance. HENT: Normocephalic, atraumatic, bilateral external ears normal, oropharynx moist, no oral exudates, nose normal. Eyes: KASHMIR, EOMI, conjunctiva normal, no discharge. Neck: Normal range of motion, no tenderness, supple, no stridor. Cardiovascular: Irregularly irregular, tachycardic, 3/6 holosystolic murmur Thorax and Lungs: breath sounds are symmetrical bilaterally. NO adventitious sounds audible Abdomen: Bowel sounds normal, soft, no tenderness, no masses, no pulsatile masses. Skin: Warm, dry, no erythema, no rash. Back: No tenderness, no CVA tenderness. Extremities: Intact distal pulses, no tenderness, no cyanosis, no clubbing, ROM intact, no edema. Neurologic: confused.normal motor function, normal sensory function, no focal deficits noted. Psychologic: Confused and uncooperative EK03/28/2017: Atrial fibrillation with out any acute ST-T wave abnormality IMPRESSION atrial fibrillation: THe patient has rapid ventricular rate. I reviewed his EKG on admission and this showed a controlled ventricular rate. he is on Cardizem. I will add and IV metoprolol. I suspect that his rates are high because he has not been taking his oral medication as well has his current dehydration. He was previously on anticoagulation but this is on hold as have questionable melena and he had severe anemia. Mitral regurgitation: His echo a month ago had shown severe mitral regurgitation. Apparently he was evaluated at and was considered too high risk for surgery. Heart failure with preserved ejection fraction: His proBNP was elevated on admission. His chest x-ray showed bilateral pulmonary infiltrates. Currently he is having normal oxygen saturations on room air (nasal cannula has slipped off) and his chest is clear. Hyponatremia: Severe. THis is consistent with intravascular volume depletion. I will place him on D5 water, with follow-up BMP later today and then switch him to half normal saline. Acute on chronic renal failure: His creatinine is slowly trending up consistent with intravascular volume depletion. We will hold his Lasix currently. Anemia: THere is a question of whether he had a melena before he presented. His hemoglobin is 7. He was transfused 1 unit and his hemoglobin is 8.3 consistent with intravascular volume depletion Currently he is being evaluated for hospice. We will continue to follow while he is in the hospital Problems: AYAH GUTIERREZ APRN Apr 01, 2017 08:55 JAZMINE OKEEFE MD Apr 01, 2017 10:01
--- NOTE | 2017-04-01 09:34 | PN ---
DATE: 03/30/2017 SUBJECTIVE: A 81-year-old gentleman in with sepsis. The patient is quite restless in bed according to the nursing staff as really respond well to any type of stimuli. The patient seems to be a little bit improved in terms of his vital signs. OBJECTIVE: VITAL SIGNS: Blood pressure 120/60, respiratory rate 24, pulse still 110 or so, oxygen saturation up to 95%. GENERAL: Otherwise, he is arousable, but very alert. LUNGS: Diminished, poor breath sounds, but clear than they have been. CARDIOVASCULAR: Regular sinus rhythm. ABDOMEN: Soft, diffuse. No tenderness noted. EXTREMITIES: No clubbing, cyanosis, or edema. Marked musculoskeletal atrophy. Not eating very well at all. May need to put him on some type of IV nutrition. The patient otherwise is resting fairly comfortably. We will continue to monitor. LABORATORY DATA: Hemoglobin up to 8.4 , white count 8. Sodium 154 (NC), BUN and creatinine stable. Potassium 3.4, albumin 2. IMPRESSION: Sepsis, probable gastrointestinal bleed, anemia secondary to gastrointestinal bleed, acute on top of chronic diastolic heart failure, change in mental status, chronic atrial fibrillation, severe protein malnutrition, bilateral pleural effusions, lactic acidosis, possible methicillin-resistant Staphylococcus aureus pneumonia, acute anemia, acute systolic heart failure as noted. PLAN: The patient had received 1 unit packed RBCs. He is on IV antibiotic therapy. We will continue to monitor him and adjust his electrolytes as much as possible. VENKAT DANIELSON MD DR: MARLENE/ivy JOB#: [id number] / [id number]
--- NOTE | 2017-04-01 09:35 | PN ---
DATE: 03/31/2017 SUBJECTIVE: The patient continues to be restless and noncommunicative. Family decided to transfer the patient to a hospice and not be aggressive with his current management. OBJECTIVE: GENERAL: Well-developed, well-nourished male, not in acute distress. VITAL SIGNS: Blood pressure 108/66, respiratory rate 22, pulse is 129, oxygen saturation is 100% on 2 liters by nasal cannula. HEENT: Normocephalic, atraumatic, otherwise unremarkable. NECK: Supple. Negative for carotid bruit, lymphadenopathy or thyromegaly. LUNGS: With diminished breath sounds. CARDIOVASCULAR: Regular rhythm, normal S1, S2. ABDOMEN: Soft. Bowel sounds positive. EXTREMITIES: Negative for cyanosis, clubbing or pitting edema. NEUROLOGIC: Unchanged. The patient opens eyes to commands; however, she does not follow any commands. There is no facial motor or sensory deficit. Hearing appears to be intact. The patient moves his upper and lower extremities spontaneously. Otherwise, neuro examination unchanged. IMPRESSION: 1. Encephalopathy, probably multifactorial. 2. Multiple medical problems that include paroxysmal atrial fibrillations, pneumonia, anemia, hyperlipidemia, hypertension and dementia. RECOMMENDATIONS: Continue with current management as initiated by Dr. Roper and possible hospice care. M Kendall BOYLE MD DR: AUSTIN/ivy JOB#: [id number] / [id number]
[2017-04-01] MEDS ORDERED: IV DEXTROSE 5% 1,000 ML IV SCH (09:45)
[2017-04-01] MEDS: METOPROLOL TARTRATE 5 MG/5 ML VIAL. IV SCH ×2 (10:53→11:14)
[2017-04-01] MEDS: CEFEPIME HCL IV Push 2 GM VIAL. IVP SCH (10:55)
[2017-04-01] MEDS ORDERED: CEFEPIME HCL IV Push 2 GM VIAL. IVP SCH (11:00)
[2017-04-01] MEDS ORDERED: MORPHINE SULFATE 20 MG/ML CONC SOLUTION. SL PRN (11:30)
[2017-04-01] MEDS ORDERED: LORazepam 2 MG/ML VIAL IV PRN (12:30)
[2017-04-01] MEDS ORDERED: SCOPOLAMINE 1.5MG PATCH. TD SCH (12:30)
--- NOTE | 2017-04-01 22:36 | PN ---
DATE: 04/01/2017 SUBJECTIVE: A 81-year-old male in with change in mental status, multiple medical problems and like. The patient is still very sedated; apparently, the family is looking at the possibility of hospice. Otherwise, the patient continues to be monitored carefully make further evaluation. PHYSICAL EXAMINATION: GENERAL: The patient barely arousable. VITAL SIGNS: Blood pressure 120/70, respiration 22, pulse 120. CARDIOVASCULAR: Regular sinus rhythm. 2/6 systolic ejection murmur. ABDOMEN: Soft, nontender. The patient barely responsive, change in mental status. IMPRESSION: Sepsis, acute on top of chronic diastolic heart failure, loss of consciousness, anemia, acute gastrointestinal bleed, acute on top of chronic renal failure, dementia, hypertension, chronic paroxysmal atrial fibrillation, and mitral regurgitation. VENKAT DANIELSON MD DR: MARLENE/ivy JOB#: [id number] / [id number]
--- NOTE | 2017-04-02 08:42 | PN ---
DATE: NO DICTATION. VENKAT DANIELSON MD DR: Bart JOB#: [id number] / [id number]
== END 2017-04-01 16:05 | disposition hospice, inpatient (51) | DRG 871 ==
LOC: ER 14:50 → ICU 16:19
PROVIDERS: ADMIT Family Medicine; ATTEND Family Medicine
PROC: 30233N1 Transfusion of Nonautologous Red Blood Cells into Peripheral Vein, Percutaneous Approach (ICD-10-PCS; principal; 2017-03-28)
PROC: 06HN33Z Insertion of Infusion Device into Left Femoral Vein, Percutaneous Approach (ICD-10-PCS; 2017-03-28)
DX: A41.9 Sepsis, unspecified organism (principal); E43 Unspecified severe protein-calorie malnutrition; J96.01 Acute respiratory failure with hypoxia; G93.40 Encephalopathy, unspecified; I50.43 Acute on chronic combined systolic (congestive) and diastolic (congestive) heart failure; N17.9 Acute kidney failure, unspecified; K57.93 Diverticulitis of intestine, part unspecified, without perforation or abscess with bleeding; J18.9 Pneumonia, unspecified organism; E87.0 Hyperosmolality and hypernatremia; D62 Acute posthemorrhagic anemia; E87.1 Hypo-osmolality and hyponatremia; I13.0 Hypertensive heart and chronic kidney disease with heart failure and stage 1 through stage 4 chronic kidney disease, or unspecified chronic kidney disease; Z68.1 Body mass index [BMI] 19.9 or less, adult; J44.0 Chronic obstructive pulmonary disease with (acute) lower respiratory infection; I48.0 Paroxysmal atrial fibrillation; I48.2 Chronic atrial fibrillation; E86.0 Dehydration; F03.90 Unspecified dementia, unspecified severity, without behavioral disturbance, psychotic disturbance, mood disturbance, and anxiety; E78.00 Pure hypercholesterolemia, unspecified; E78.5 Hyperlipidemia, unspecified; E87.6 Hypokalemia; F32.9 Major depressive disorder, single episode, unspecified; F41.9 Anxiety disorder, unspecified; I34.0 Nonrheumatic mitral (valve) insufficiency; I34.1 Nonrheumatic mitral (valve) prolapse; K21.9 Gastro-esophageal reflux disease without esophagitis; M47.814 Spondylosis without myelopathy or radiculopathy, thoracic region; J44.9 Chronic obstructive pulmonary disease, unspecified; N18.9 Chronic kidney disease, unspecified; Z79.01 Long term (current) use of anticoagulants; Z82.49 Family history of ischemic heart disease and other diseases of the circulatory system; Z85.828 Personal history of other malignant neoplasm of skin; Z86.711 Personal history of pulmonary embolism; Z86.73 Personal history of transient ischemic attack (TIA), and cerebral infarction without residual deficits; Z87.891 Personal history of nicotine dependence; Z78.1 Physical restraint status
CPT/HCPCS: 36415; 36556; 51702; 70450; 71045; 72125; 72128; 80048; 80053; 80202; 81001; 82274; 82803; 83540; 83550; 83605; 83880; 84484; 85025; 85610; 85730; 86738; 86850; 86900; 86901; 86920; 87040; 87086; 87641; 87804; 93005; 94640; 96361; 96374; 96375; C9113; J0692; J1940; J1956; J2060; J2270; J3370; J3490; J7040; J7050; J7620; P9016; 99285-25; J7030